=== PATIENT | male | born 1945 | race Caucasian/White ===

== ENCOUNTER 2016-12-18 11:39 | Day surgery (SDC) | payer OTHER ==
[2016-12-18] MEDS ORDERED: ASPIRIN EC 325 MG TAB PO ONE (11:43)
[2016-12-18] MEDS ORDERED: diphenhydrAMINE 25 MG CAP PO ONE (11:43)
[2016-12-18] MEDS ORDERED: FAMOTIDINE 20 MG TAB PO ONE (11:43)
[2016-12-18] MEDS ORDERED: NS 1,000 ML IV ONE (11:43)
[2016-12-18] MEDS ORDERED: DIAZEPAM 5 MG TAB PO ONE (11:43)
--- NOTE | 2016-12-18 12:12 | CPEKG ---
Heart Rate: 54 RR Interval: 1111 P-R Interval: 160 QRSD Interval: 108 QT Interval: 408 QTC Interval: 387 P [place]: 12 QRS [place]: 8 T Wave [place]: -8 EKG Severity - BORDERLINE ECG - EKG Impression: SINUS RHYTHM EKG Impression: BORDERLINE T ABNORMALITIES, ANTERIO-LATERAL LEADS Electronically Signed By: Benjamin Damon 18-Dec-2016 12:59:56
[2016-12-18] MEDS ORDERED: LIDOCAINE 1% 30 ML SDV ONE (12:25)
[2016-12-18] MEDS ORDERED: fentaNYL 100 MCG/2 ML INJ ONE (12:25)
[2016-12-18] MEDS ORDERED: HEPARIN 10,000 UNIT/10 ML MDV ONE (12:26)
[2016-12-18] MEDS ORDERED: VERAPAMIL 5 MG/2 ML VIAL ONE (12:26)
[2016-12-18] MEDS ORDERED: MIDAZOLAM 2 MG/2 ML VIAL ONE (12:26)
[2016-12-18] MEDS ORDERED: IOPAMIDOL (ISOVUE-300) 150 ML BTL IV ONE (12:29)
[2016-12-18 12:34] LABS: % IMMATURE GRANULYOCYTES 0.6 % (0.0-1.1); ABSOLUTE IMMATURE GRANULOCYTES 0.06 10^3/uL (0.00-0.10); ADD DIFF? NO; ADD MORPH? NO; ADD SCAN? NO; ATYPICAL LYMPHOCYTE FLAG 0 (0-99); FRAGMENT RBC FLAG 0 (0-99); HEMATOCRIT 44.8 % (40.0-51.0); HEMOGLOBIN 16.4 g/dL (13.7-17.5); LEFT SHIFT FLG 0 (0-99); LIPEMIA HEMOLYSIS FLAG 90 (0-99); MEAN CELL HEMOGLOBIN 32.7 pg (27.9-34.1); MEAN CELL HEMOGLOBIN CONCENTR. 36.6 g/dL (32.4-36.7); MEAN CELL VOLUME 89.2 fL (81.5-99.8); PLATELET CLUMPS FLAG 0 (0-99); PLATELET COUNT 190 10^3/uL (150-400); RED BLOOD CELL COUNT 5.02 10^6/uL (4.40-6.38); RED CELL DISTRIBUTION WIDTH 12.1 % (11.5-15.2)
[2016-12-18 12:42] LABS: INR 1.11 (0.83-1.16); PROTIME(PATIENT) 14.2 SEC (12.0-15.0)
[2016-12-18 13:01] LABS: ANION GAP 11 mEq/L (8-16); CALCIUM 9.4 mg/dL (8.5-10.4); CARBON DIOXIDE 24 mEq/l (22-31); CHLORIDE 107 mEq/L (97-110); CHOLESTEROL 147 mg/dL (140-220); CREATININE 0.8 mg/dL (0.7-1.3); GLOMERULAR FILTRATION RATE > 60; GLUCOSE 125 mg/dL (70-100); HIGH DENSITY LIPOPROTEIN 42 mg/dL (40-65); LDL/HDL RATIO 1.79 RATIO (1.00-3.64); LOW DENSITY LIPOPROTEIN 75 mg/dL (80-100); NON-HIGH DENSITY LIPOPROTEIN 105 mg/dL (90-129); POTASSIUM 3.8 mEq/L (3.5-5.2); SODIUM 142 mEq/L (134-144); TRIGLYCERIDE 153 mg/dL (40-150); VERY LOW DENSITY LIPOPROTEINS 30 mg/dL (8-25)
--- NOTE | 2016-12-18 13:43 | SUROPNOTE ---
[facility] Operative Report - Surgery Date of Procedure: 12/18/16 Indication: This patient is a 71 year old man, with a history of hypertension, hyperlipidemia, and type II diabetes, presenting with a 9 month history of intermittent episodes of chest pressure, first onset with exertion, but more recently with an episode while at rest. [address] cardiovascular class III angina. Nuclear stress test was abnormal. The patient demonstrated 2mm horizontal/downsloping ST depression at peak exercise. Furthermore, myocardial perfusion imaging showed a moderate size, moderate intensity reversible defect involving the full extent of the inferior wall consistent with ischemia, in additional to hypokinesis of the basal inferior wall and transient ischemic dilation of the left ventricle on stress. Left heart catheterization indicated secondary to class III angina and high-risk non-invasive testing. Procedures performed: 1. Left heart catheterization with left ventricular and selective coronary angiography. Description of procedure: Description, risks, benefits and alternatives were discussed in detail. Informed consent was obtained. The patient was brought to the catheterization laboratory where a timeout was performed. The right wrist was sterilely prepped and draped. 2% lidocaine utilized for local anesthetic. A 5/6-Romanian slender hemostatic sheath placed right radial artery utilizing micropuncture technique. Intraarterial verapamil and intravenous heparin was administered. Diagnostic coronary angiography of the left coronary system was performed with 6-Romanian, Flavio left-3.5. Due to tortuosity, the right coronary was very difficult to engage and catheter manipulation was challenging. A 6-Romanian Flavio right-4, [place] right, AL1, AR1, and ARMENDARIZ catheter was utilized for diagnostic coronary angiography of the right coronary, ultimately this was achieved utilizing a 6-Romanian ARMENDARIZ catheter. All catheters were passed over a 0.035 guidewire. Pigtail catheter was then utilized for left heart catheterization and left ventricular angiography. Arterial sheath was removed and TR band was placed. Findings: 1. Hemodynamics: Aortic pressure 110/62, mean of 84, left ventricular pressure 104/12/19 end-diastolic. There was no significant pull back gradient across the aortic valve. 2. Left ventricle: The left ventricle appears normal in size. Left ventricle is normal shape. Segmental wall motion is normal with an ejection fraction of 60 %. There are no filling defects or significant mitral regurgitation. The aortic root and ascending aorta appears normal, there is no dissection or aneurysm formation. 3. Coronary angiography: Left main: The left main is a very short bifurcating vessel, which is calcified but has no significant stenosis. 4. Left anterior descending: This is a moderately large, heavily calcified vessel continuing around the apex. There is a moderate size first diagonal branch, a small second diagonal branch, and a small-moderate third diagonal branch. All three diagonals have ostial subtotal occlusions. The lad is heavily calcified with proximal 70% stenosis and a long mid 90% stenosis. 5. Circumflex: The circumflex gives rise to a moderately large first obtuse marginal branch, which has a fairly long subtotal proximal stenosis, and a moderately large bifurcating second obtuse marginal branch, which has a proximal subtotal occlusion involving both branches of the bifurcation. Then there are two posterolaterals and a posterior descending artery, which are small -to-moderate in size with irregularities but no stenosis of greater than 40%. 6. Right coronary: Difficult to engage. Moderately large non-dominate vessel with a 75% proximal stenosis. Overall Impression: 1. Severe three-vessel coronary artery disease 2. Normal left ventricular systolic function, with ejection fraction of 60%. Plan: 1. Echocardiogram 2. Carotid ultrasound 3. Plan for bypass surgery with Dr. Hyde, likely early next week. Portions of this report were documented by a medical device. I have reviewed this report and agree with the documentation. Report scribed for Dr. Navi Mcclain. Report scribed by Dianelys Landin.
[2016-12-18] MEDS ORDERED: OXYCODONE/APAP 5/325 TAB PO PRN (13:55)
[2016-12-18] MEDS ORDERED: NITROGLYCERIN 0.4 MG BTL SL PRN (13:55)
[2016-12-18] MEDS ORDERED: ONDANSETRON 4 MG/2 ML VIAL IVP PRN (13:55)
[2016-12-18] MEDS ORDERED: ATROPINE SULFATE 1 MG/10 ML SYR IVP PRN (13:55)
[2016-12-18] MEDS ORDERED: HYDROCODONE/APAP 5/325 TAB PO PRN (13:55)
--- NOTE | 2016-12-19 10:11 | GCON ---
DATE OF CONSULTATION: 12/18/2016 IMPRESSION: 1. Unstable angina pectoris with severe 3-vessel disease. 2. Diabetes mellitus type 2, currently not taking prescribed metformin. 3. Hyperlipidemia, on Lipitor. 4. Hypertension. 5. History of moderate to heavy longstanding alcohol intake without sequela. RECOMMENDATIONS: I did student loan counselor this patient about moderate alcohol intake and decreasing the level. I advised him that in the next 48 hours he should not drink at all prior to surgery, and we will co jose manuel him with sedatives in the perioperative period and likely oral alcohol to prevent any consequenc es. We did discuss coronary artery bypass grafting. He is amenable to proceed with elective surgery on Friday given the unstable nature of his lesions and symptoms. He does understand if he has any re current chest pain after being discharged, he should immediately return to the emergency room, at wh ich point we will control his angina and proceed with earlier surgery. Risks and complications for s urgery were reviewed. We will also obtain a carotid ultrasound, chest x-ray, and cardiac echo, altho ugh he has no history of valvular disease or significant murmurs. 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 It has not awakened him at [facility]. He had no prior known cardiac event. He had noninvasive testing which was abnormal, which led t o diagnostic left heart cath today which showed 3-vessel equivalent disease with well-preserved LV f unction. MEDICAL HISTORY: As stated. PAST SURGICAL HISTORY: He has had both knees operated with total knee replacement. FAMILY HISTORY: Noncontributory. REVIEW OF SYSTEMS: At the present time, he is without complaints, except for chief complaint. PHYSICAL EXAMINATION: GENERAL: He is a well-developed elderly gentleman, appears younger than state d age. VITAL SIGNS: Blood pressure is 140/76, respirations 14 nonlabored, heart rate is 76. HEENT: N ormocephalic. PERRLA, EOMI. There are bilateral soft carotid bruits. HEART: Rate is regular without murmur. LUNGS: Clear. ABDOMEN: Soft, nontender. Bowel sounds are active. RECTAL AND GENITAL: Deferre d. NEUROLOGIC: He is oriented x3. Mood and affect were appropriate. Please see cath report for details. /[id number]/MODL
--- NOTE | 2016-12-20 08:48 | ECHO ---
[id number] + + [address] : : [place] [address] : : [phone] + + Adult Echocardiographic Report + + :Name: KULDIP WIGGINS DStudy Date: 12/18/2016 05:35 PM BP: 133/83 mmHg : : Hospital Admission Number: [id number] Loc ation: CVC: :: 1945 Gender: Male Height: 66 in : :Age: 71 yrs Race: WH Weight: 191 lb : :Reason For Study: evaluate valves : : BSA: 2.0 me ters2 : :History: pre-op CABG : + + MMode/2D Measurements \T\ Calculations IVSd: 0.86 cm RVDd: 2.3 cm FS: 33.7 % Ao root diam: LVPWd: 0.84 cm LVIDd: 4.1 cm EDV(Teich): 75.2 ml3.0 cm LVIDs: 2.7 cm ESV(Teich): 27.8 ml EF(Teich): 63.0 % LVOT diam: 2.0 cmLVLd ap4: 8.4 cm SV(MOD-sp4): LVOT area: EDV(MOD-sp4): 70.0 ml 3.0 cm2 116.0 ml LVLs ap4: 7.3 cm ESV(MOD-sp4): 46.0 ml EF(MOD-sp4): 60.3 % Normal Measurement Values: + + :LVIDd (3.5-5.7cm) IVSd (0.6-1.1cm) LVPWd (0.6-1.1cm) Aortic Root (2.0-3.7cm)Left Atrium (1.5-4.0cm): :LV Vol(d) (76-115ml) LV Vol(s) (29-48ml) Ejec Fraction (50-65%)PV Marc (0.6- 1.2m/s) TV Marc (0.4-1.0m/s) : :MV E Marc (0.8-1.0m/s)MV A Marc (0.3-1.0m/s)LVOT Marc (0.7-1.2m/s) Asc Ao Marc ( 0.9-1.8m/s) : + + Doppler Measurements \T\ Calculations MV E max marc: Ao V2 max: LV V1 max: SV(LVOT): 81.4 cm/sec 199.1 cm/sec 96.3 cm/sec 79.2 ml MV A max marc: Ao max P.9 mmHgLV V1 max P.8 cm/sec Ao mean P.7 mmHg3.7 mmHg MV E/A: 0.87 Ao V2 mean: LV V1 mean PG: MV dec time: 0.22 sec 141.8 cm/sec 2.5 mmHg Ao V2 VTI: 37.9 cm LV V1 mean: SP(I,D): 2.1 cm2 73.5 cm/sec LV V1 VTI: 26.1 cm SP(V,D): 1.5 cm2 PA V2 max: TR max marc: 109.8 cm/sec 230.8 cm/sec PA max P.8 mmHg TR max P.3 mmHg RAP systole: 5.0 mmHg RVSP(TR): 26.3 mmHg Left Ventricle The left ventricle is normal in size and function. There is mild concentric left ventricular hypertrophy. Ejection Fraction = 60-65%. There is Doppler evidence for diastolic dysfunction. No regional wall motion abnormalities noted. Right Ventricle The right ventricle is normal in size and function. Atria The left atrial size is normal. Right atrial size is normal. Mitral Valve The mitral valve leaflets appear thickened, but open well. There is no mitral valve stenosis. There is trace mitral regurgitation. Tricuspid Valve The tricuspid valve is normal in structure and function. There is no tricuspid stenosis. There is trace to mild tricuspid regurgitation. Right ventricular systolic pressure is 26mmHg. Aortic Valve The aortic valve is trileaflet. There is mild to moderate aortic valve calcification. There is no aortic stenosis. Trace aortic regurgitation. Pulmonic Valve The pulmonic valve is not well visualized. Great Vessels The aortic root is normal size. Pericardium/Pleural There is no pericardial effusion. Conclusion A two-dimensional transthoracic echocardiogram with M-mode and Doppler was performed. The left ventricle is normal in size and function. There is mild concentric left ventricular hypertrophy. Ejection Fraction = 60-65%. There is trace mitral regurgitation. There is trace to mild tricuspid regurgitation. Right ventricular systolic pressure is 26mmHg. Trace aortic regurgitation. There is Doppler evidence for diastolic dysfunction. Final Reading Physician: Pooja Benson signed on 12/20/2016 08:47 AM Ordering Physician: Luciano Hyde Performed By: Krista Mitchell
== END 2016-12-18 18:35 | disposition home or self-care (01) ==
LOC: FCATH 11:39
PROVIDERS: ATTEND Internal Medicine Interventional Cardiology
DX: I25.119 Atherosclerotic heart disease of native coronary artery with unspecified angina pectoris (principal); E78.5 Hyperlipidemia, unspecified; E11.9 Type 2 diabetes mellitus without complications; I10 Essential (primary) hypertension; Z96.652 Presence of left artificial knee joint
CPT/HCPCS: J1644; J2250; J3010; Q9967

== ENCOUNTER 2016-12-19 12:45 | Inpatient (IN) | payer OTHER ==
[2016-12-20] MEDS ORDERED: LIDOCAINE 1% 5 ML SDV ID PRN ×2 (06:00→07:11)
[2016-12-20] MEDS ORDERED: AMINOCAPROIC ACID 5 GM/20 ML VIAL IV ONE (06:00)
[2016-12-20] MEDS ORDERED: INSULIN REGULAR HUMAN 100 UNIT in NS 100 ML IV ONE (06:00)
[2016-12-20] MEDS ORDERED: NOREPINEPHRINE BITARTRATE 16 MG in NS 250 ML IV ONE (06:00)
[2016-12-20] MEDS ORDERED: niCARdipine/NACL 200 ML IV ONE (06:00)
[2016-12-20] MEDS ORDERED: CITRATE DEXTROSE SOLN 500 ML BAG MISC ONE (06:00)
[2016-12-20] MEDS ORDERED: NS 1,000 ML IV ONE (06:00)
[2016-12-20] MEDS ORDERED: SODIUM BICARBONATE 20 MEQ, LIDOCAINE 1% 10 ML in NORMOSOL-R 1,000 ML MISC ONE (06:00)
[2016-12-20] MEDS ORDERED: VERAPAMIL 5 MG, NITROGLYCERIN 2.5 MG, HEPARIN 500 UNIT, SODIUM BICARBONATE 0.2 MEQ in L... MISC ONE (06:00)
[2016-12-20] MEDS ORDERED: PHENYLEPHRINE HCL 50 MG in NS 250 ML IV ONE (06:00)
[2016-12-20] MEDS ORDERED: ceFAZolin 2 GM/DEXTROSE 100 ML IV ONE (06:00)
[2016-12-20] MEDS ORDERED: MANNITOL 25% 12.5 GM/50 ML VIAL IV ONE (06:00)
[2016-12-20] MEDS ORDERED: PROTAMINE SULFATE 50 MG/5 ML VIAL IVP ONE (06:41)
[2016-12-20] MEDS ORDERED: POTASSIUM Cl (KCl) 20 MEQ/50 ML BAG IV ONE (06:42)
[2016-12-20] MEDS ORDERED: AMINOCAPROIC ACID 5 GM/20 ML VIAL ONE ×2 (06:42→06:45)
[2016-12-20] MEDS ORDERED: CALCIUM CHLORIDE 1 GM/10 ML INJ ONE ×2 (06:42→06:45)
[2016-12-20] MEDS ORDERED: MILRINONE/DEXTROSE/100 ML BAG IV ONE (06:42)
[2016-12-20] MEDS ORDERED: NA BICARBONATE 50 MEQ/50 ML VIAL ONE (06:42)
[2016-12-20] MEDS ORDERED: AMIODARONE HCL 150 MG/3 ML VIAL ONE ×2 (06:43→06:45)
[2016-12-20] MEDS ORDERED: niCARdipine/NACL/200 ML BAG IV ONE (06:43)
[2016-12-20] MEDS ORDERED: DOPamine/DEXTROSE/250 ML BAG IV ONE (06:43)
[2016-12-20] MEDS ORDERED: ADENOSINE 6 MG/2 ML VIAL ONE (06:43)
[2016-12-20] MEDS ORDERED: HEPARIN 10,000 UNIT/10 ML MDV ONE ×2 (06:44→06:46)
[2016-12-20] MEDS ORDERED: ceFAZolin 1 GM VIAL ONE (06:44)
[2016-12-20] MEDS ORDERED: ALBUMIN 5% 250 ML BOTTLE IV ONE (06:45)
[2016-12-20] MEDS ORDERED: LIDOCAINE 2% 100 MG/5 ML SYR IVP ONE (06:45)
[2016-12-20] MEDS ORDERED: MAGNESIUM SULFATE 1 GM/2 ML VIAL ONE (06:46)
[2016-12-20] MEDS ORDERED: methylPREDNISolone SOD SUCC 1 GM/8 ML VIAL ONE (06:46)
[2016-12-20] MEDS ORDERED: SKIN ADHESIVE (DERMABOND) 1 EACH TP ONE (06:56)
[2016-12-20] MEDS ORDERED: MINERAL OIL 10 ML VIAL TP ONE (06:57)
[2016-12-20] MEDS ORDERED: PAPAVERINE HCL 60 MG/2 ML SDV ONE (06:57)
[2016-12-20] MEDS ORDERED: VERAPAMIL 5 MG/2 ML VIAL ONE (06:57)
[2016-12-20] MEDS ORDERED: LIDOCAINE 1% 5 ML SDV ONE (06:58)
[2016-12-20] MEDS ORDERED: CITRATE DEXTROSE SOLN 500 ML BAG ONE (06:59)
[2016-12-20] MEDS ORDERED: MIDAZOLAM 2 MG/2 ML VIAL ONE ×2 (07:10)
[2016-12-20] MEDS ORDERED: LR 1,000 ML IV ONE (07:11)
[2016-12-20] MEDS ORDERED: PROPOFOL 200 MG/20 ML VIAL ONE (07:12)
[2016-12-20] MEDS ORDERED: fentaNYL 250 MCG/5 ML INJ ONE ×2 (07:12)
[2016-12-20] MEDS ORDERED: PHENYLEPHRINE 10 MG/ML SDV ONE ×2 (07:14)
[2016-12-20] MEDS ORDERED: LIDOCAINE 2% 5 ML SDV ONE (07:17)
[2016-12-20] MEDS ORDERED: LABETALOL HCL 5 MG/ML 20 ML MDV ONE (07:21)
[2016-12-20] MEDS ORDERED: ROCURONIUM 100 MG/10 ML VIAL ONE (07:21)
[2016-12-20] MEDS ORDERED: epHEDrine SULFATE 10 MG/ML SYR ONE (08:02)
[2016-12-20] MEDS ORDERED: ROCURONIUM 50 MG/5 ML VIAL ONE (10:50)
[2016-12-20] MEDS ORDERED: MAGNESIUM SULF 1 GM/DEXTROSE 100 ML BAG IV ONE (11:20)
[2016-12-20] MEDS ORDERED: SUGAMMADEX SODIUM 200 MG/2 ML VIAL IVP ONE (11:26)
[2016-12-20] MEDS ORDERED: ALBUMIN 5% 250 ML IV PRN (11:54)
[2016-12-20] MEDS ORDERED: SODIUM CL NASAL 45 ML BTL EACHNARE PRN (11:54)
[2016-12-20] MEDS ORDERED: MAGNESIUM SULF 2 GM/WATER 50 ML IV ONE (11:54)
[2016-12-20] MEDS ORDERED: CEPACOL LOZENGE PO PRN (11:54)
[2016-12-20] MEDS ORDERED: LACTULOSE 20 GM/30 ML UDCUP PO PRN (11:54)
[2016-12-20] MEDS ORDERED: MAGNESIUM HYDROXIDE 30 ML UDCUP PO PRN (11:54)
[2016-12-20] MEDS ORDERED: ACETAMINOPHEN 325 MG TAB PO PRN (11:54)
[2016-12-20] MEDS ORDERED: POLYETHYLENE GLYCOL 3350 17 GM PKT PO PRN (11:54)
[2016-12-20] MEDS ORDERED: ONDANSETRON DISINTEGRATING 4 MG TAB PO PRN (11:54)
[2016-12-20] MEDS ORDERED: D50W 25 GM/50 ML SYR IVP PRN (11:54)
[2016-12-20] MEDS ORDERED: PANTOPRAZOLE SODIUM 40 MG in NS 100 ML IV ONE (11:54)
[2016-12-20] MEDS ORDERED: fentaNYL 100 MCG/2 ML INJ IVP PRN (11:54)
[2016-12-20] MEDS ORDERED: BISACODYL 10 MG SUPP PR PRN (11:54)
[2016-12-20] MEDS ORDERED: MEPERIDINE 25 MG/ML SYR IVP PRN (11:54)
[2016-12-20] MEDS ORDERED: ACETAMINOPHEN 650 MG SUPP PR PRN (11:54)
[2016-12-20] MEDS ORDERED: NS 1,000 ML IV SCH (12:00)
[2016-12-20] MEDS ORDERED: INSULIN REGULAR HUMAN 100 UNIT in NS 100 ML IV SCH (12:00)
--- NOTE | 2016-12-20 12:13 | POSTOPPROG ---
Post Op Note Date of Operation: 12/20/16 Surgeon: Luciano Hyde Video Effects Editor: Jassi Anesthesiologist: Luis Anesthesia: GET(General Endotracheal) Pre-op Diagnosis: ASHD Procedure: CAB 5 Ley-Lad, SVG-Dg,Lcx,PLCXseqPDCX, Atriclip FARIBA,EVH Inf/Abcess present in the surg proc area at time of surgery?: No EBL: 50-100 Drains: Other (3 blakes)
[2016-12-20 12:47] LABS: BASE EXCESS -4.7 mEq/L (-2.5-2.5); BICARBONATE 21 mEq/L (22-26); MEASURED OXYGEN SATURATION 92 % (92-95); PCO2 41 mmHg (34-38); PO2 66 mmHg (65-75); TCO2 22 mEq/L (23-27)
--- NOTE | 2016-12-20 12:49 | GOP ---
DATE OF OPERATION: 12/20/2016 SURGEON: Luciano Hyde DO HOME TEACHING GRADES 9 THRU 12 TEACHER: Gely Keene, PAC ANESTHESIA: Pavan Smith MD. PREOPERATIVE DIAGNOSIS: Arteriosclerotic heart disease with unstable angina. POSTOPERATIVE DIAGNOSIS: Arteriosclerotic heart disease with unstable angina. PROCEDURE PERFORMED: FINDINGS: The patient had crescendo angina, with angina at rest. Was found to have three-vessel di sease with mild LV dysfunction. Preoperative echocardiogram revealed mild to trace mitral insuffici ency. Otherwise, no valvular dysfunction. He was consented for surgery. Brought to the operating room, intubated. Monitoring lines were placed. He was prepped and draped in a sterile classical ma nner. Sternotomy was performed. The mammary was harvested without difficulty. It was a 2 mm vesse l with brisk flow. There vein was harvested endoscopically from the left leg, by Gely Keene, who then first assisted throughout. DESCRIPTION OF PROCEDURE: OPERATION PERFORMED: 1. Coronary bypass grafting x5 with left internal mammary artery to left anterior descending, saphe nous vein graft to the second diagonal, saphenous vein graft to the lateral circumflex, saphenous ve in graft to the posterolateral branch of the circumflex, sequential posterior tibial circumflex. 2. Endoscopic vein harvest. 3. AtriClip to the left atrial appendage. PROCEDURE: He was heparinized and cannulated in the standard fashion. Cardiopulmonary bypass was b egun. A cardioplegic arrest was obtained with antegrade cardioplegia, topical hypothermia and syste jose maria cooling. All distals and proximals were performed with a cross-clamp on. He had diffuse wolfe ry disease throughout. His PT circumflex was a 1.2 mm vessel. The posterior lateral circumflex was a 1.8 mm vessel. The lateral circumflex was a 1.82 mm vessel. The diagonal was 1.8 mm vessel. Th e LAD was a diffusely diseased, heavily calcified, 2.2 to 2.4 mm vessel. The conduits were excellen t. The aorta was without thickening or calcification. LV function was well preserved. Preoperativ e TITO revealed, again, mild mitral insufficiency. Post operatively, he had more significant mitral insufficiency, although he is only V paced. This was not considered significant and should resolve with resumption of normal heart rhythm. He was easily weaned from bypass. The heparin was reversed with protamine. The cannula was removed and oversewn. Two ventricular pacing wires, two pleural a nd one mediastinal drain were placed. The thymic fat and pericardium were closed. The chest was cl osed in a standard fashion. Patient was returned to the ICU in stable condition. /[id number]/MODL
[2016-12-20] MEDS ORDERED: fentaNYL 50 MCG PATCH TD SCH (13:00)
--- NOTE | 2016-12-20 13:02 | CPEKG ---
Heart Rate: 50 RR Interval: 1200 P-R Interval: 184 QRSD Interval: 140 QT Interval: 436 QTC Interval: 398 P [place]: 51 QRS [place]: -33 T Wave [place]: 36 EKG Severity - ABNORMAL ECG - EKG Impression: SINUS RHYTHM EKG Impression: RIGHT BUNDLE BRANCH BLOCK Electronically Signed By: Benjamin Damon 20-Dec-2016 13:09:04
[2016-12-20] MEDS: MUPIROCIN 2% 22 GM OINT NS SCH ×2 (13:40→22:12)
[2016-12-20] MEDS: ceFAZolin 2 GM in D5W 100 ML IV SCH ×2 (13:41→22:10)
[2016-12-20] MEDS ORDERED: ceFAZolin 2 GM/DEXTROSE 100 ML IV SCH (14:00)
[2016-12-20] MEDS: POTASSIUM Cl (KCl) 50 ML IV PRN ×2 (15:07→16:09)
[2016-12-20] MEDS ORDERED: NOREPINEPHRINE BITARTRATE 16 MG in NS 250 ML IV SCH (15:30)
[2016-12-20] MEDS ORDERED: ALBUTEROL 3 ML DEYVIAL IH PRN (15:30)
[2016-12-20] MEDS ORDERED: ALBUMIN 5% 500 ML IV ONE ×2 (16:00→19:00)
[2016-12-20] MEDS: HYDROCODONE/APAP 5/325 TAB PO PRN ×2 (16:47→22:30)
[2016-12-20] MEDS: METOCLOPRAMIDE 10 MG/2 ML VIAL IVP PRN (18:58)
[2016-12-20] MEDS: ONDANSETRON 4 MG/2 ML VIAL IVP PRN (18:58)
[2016-12-20 19:40] LABS: BASE EXCESS -2.9 mEq/L (-2.5-2.5); BICARBONATE 22 mEq/L (22-26); MEASURED OXYGEN SATURATION 89 % (92-95); PCO2 39 mmHg (34-38); PO2 58 mmHg (65-75); TCO2 23 mEq/L (23-27)
[2016-12-20] MEDS: SENNOSIDES/DOCUSATE SODIUM TAB PO SCH (22:12)
[2016-12-20] MEDS: MONTELUKAST SODIUM 10 MG TAB PO SCH (22:13)
[2016-12-21] MEDS: HYDROCODONE/APAP 5/325 TAB PO PRN ×4 (02:57→20:42)
[2016-12-21 04:27] LABS: % IMMATURE GRANULYOCYTES 0.6 % (0.0-1.1); ADD DIFF? NO; ADD MORPH? NO; ADD SCAN? NO; ATYPICAL LYMPHOCYTE FLAG 0 (0-99); FRAGMENT RBC FLAG 0 (0-99); HEMATOCRIT 27.3 % (40.0-51.0); HEMOGLOBIN 9.7 g/dL (13.7-17.5); LEFT SHIFT FLG 20 (0-99); LIPEMIA HEMOLYSIS FLAG 90 (0-99); MEAN CELL HEMOGLOBIN 33.3 pg (27.9-34.1); MEAN CELL HEMOGLOBIN CONCENTR. 35.5 g/dL (32.4-36.7); MEAN CELL VOLUME 93.8 fL (81.5-99.8); MEAN PLATELET VOLUME 11.8 fL (8.7-11.7); PLATELET CLUMPS FLAG 0 (0-99); PLATELET COUNT 121 10^3/uL (150-400); RED BLOOD CELL COUNT 2.91 10^6/uL (4.40-6.38); RED CELL DISTRIBUTION WIDTH 12.7 % (11.5-15.2)
[2016-12-21 04:34] LABS: ANION GAP 10 mEq/L (8-16); CALCIUM 7.5 mg/dL (8.5-10.4); CARBON DIOXIDE 22 mEq/l (22-31); CHLORIDE 111 mEq/L (97-110); CREATININE 0.8 mg/dL (0.7-1.3); GLOMERULAR FILTRATION RATE > 60; GLUCOSE 86 mg/dL (70-100); POTASSIUM 4.1 mEq/L (3.5-5.2); SODIUM 143 mEq/L (134-144)
[2016-12-21] MEDS: ceFAZolin 2 GM in D5W 100 ML IV SCH ×3 (05:09→22:06)
[2016-12-21] MEDS: ONDANSETRON 4 MG/2 ML VIAL IVP PRN ×2 (06:44→20:50)
[2016-12-21] MEDS: METOCLOPRAMIDE 10 MG/2 ML VIAL IVP PRN ×2 (06:44→22:06)
[2016-12-21] MEDS: HEPARIN 5,000 UNIT/0.5 ML SYR SC SCH ×3 (06:45→22:06)
--- NOTE | 2016-12-21 08:10 | SOAPPROG ---
SOAP Progress Note Assessment/Plan: Assessment: POD#1 CABG x 5 (SNOW-LAD, SV-D2, SV-OM1, SV sequentially to bifurcating OM2), prophylactic AtriClip LLAA Sx severe CAD w preserved LV systolic fx - s/p CABG5. Extubated in the OR. Stable early postop course. No prolonged vasoactive support. No tachycardia or backup pacing. No sig volume overload. Secondary prevention w ASA, BB as tolerated and statin when eating well. DM2 - Diet controlled, noncompliant with metformin. Preop A1c of 7.5%. Postop hyperglycemia managed with insulin gtt. Transition to SSI and OHA planned. ELIUD on CPAP - Stable. Plan: Routine POD#1 orders re lines, drains, orals and mobility. Glargine 10mg SC to facilitate wean from insulin gtt. Tx to PCU this afternoon. 12/21/16 08:09 Subjective: Feels a bit "goofy" but tolerating OOB. Satisfactory analgesia and appetite. No wheezing. Objective: Vital Signs Temp Pulse Resp BP Pulse Ox 37 C 73 20 103/46 L 91 L 12/21/16 08:00 12/21/16 08:00 12/21/16 08:00 12/21/16 08:00 12/21/16 08:00 Laboratory Results 12/21/16 04:10 12/21/16 04:10 12/20/16 12/21/16 12/22/16 05:59 05:59 05:59 Intake Total 2576.9 Output Total 1855 380 Balance 721.9 -380 Weaned off low dose levo without incident. Holding MAPs > 64. Stable suppl O2 req. CXR-> tubes in good position, mild pulm vasc congestion, bibasilar atelectasis L >R, no PTX. No sig CTOP. No AL. Labs ok. Physical Exam - Physical Exam General Appearance: alert, no apparent distress Respiratory: lungs clear (grossly), other (Blakes x 3 y-d to pleurovac, bloody drainage. +tidal, no AL.) Cardiac/Chest: regular rate, rhythm, other (Sternotomy CDI. Vwires intact) Abdomen: normal bowel sounds, non-tender, soft Skin: warm/dry Extremities: swelling (1+), other (LLE venotomy CDI, venot tract soft, flat) ICD10 Worksheet Patient Problems: Problems Problem Status Onset Acute blood loss anemia Acute S/P CABG x 5 Acute ~12/20/16 CAD in [place] artery Chronic Diabetes mellitus Chronic Primary osteoarthritis of left knee Chronic
[2016-12-21] MEDS ORDERED: ASPIRIN 81 MG CHEWABLE TAB PO SCH (09:00)
[2016-12-21] MEDS ORDERED: ASPIRIN 81 MG CHEWABLE TAB TUBE PRN (09:00)
[2016-12-21] MEDS: SENNOSIDES/DOCUSATE SODIUM TAB PO SCH ×2 (09:07→20:42)
[2016-12-21] MEDS: MUPIROCIN 2% 22 GM OINT NS SCH (09:08)
[2016-12-21] MEDS: FLUTICASONE/SALMETER 250/50MCG DISKUS IH SCH (09:08)
[2016-12-21] MEDS ORDERED: INSULIN GLARGINE 100 UNITS/ML SYRINGE SC ONE (10:30)
[2016-12-21] MEDS: PANTOPRAZOLE SODIUM 40 MG TAB PO SCH (11:59)
[2016-12-21] MEDS ORDERED: traMADol 50 MG TAB PO PRN (12:58)
[2016-12-21 18:36] LABS: GLUCOSE 212 mg/dL (70-100)
[2016-12-21] MEDS: INSULIN LISPRO 100 UNIT/ML SC SCH (19:06)
[2016-12-21] MEDS: METOPROLOL TARTRATE 25 MG TAB PO SCH ×2 (20:41→23:59)
[2016-12-21] MEDS: MONTELUKAST SODIUM 10 MG TAB PO SCH ×2 (20:41→23:59)
[2016-12-21] MEDS: ASPIRIN EC 81 MG TAB PO SCH ×2 (20:41→23:59)
[2016-12-21] MEDS ORDERED: AMIODARONE A.FIB-18HR INFSN (ORDER 3/3) IV ONE (23:30)
[2016-12-21] MEDS ORDERED: AMIODARONE A.FIB-6HR INFSN (ORDER 2/3) IV ONE (23:30)
[2016-12-21] MEDS ORDERED: POTASSIUM Cl (KCl) 100 ML IV ONE (23:30)
[2016-12-21] MEDS: FUROSEMIDE 20 MG/2 ML VIAL IVP ONE (23:59)
[2016-12-22] MEDS: SENNOSIDES/DOCUSATE SODIUM TAB PO SCH ×3 (00:01→20:35)
[2016-12-22] MEDS: FUROSEMIDE 20 MG/2 ML VIAL IVP ONE (00:54)
[2016-12-22] MEDS ORDERED: AMIODARONE A.FIB-18HR INFSN (ORDER 3/3) IV ONE (06:00)
[2016-12-22] MEDS: HEPARIN 5,000 UNIT/0.5 ML SYR SC SCH ×3 (06:31→20:32)
[2016-12-22 06:53] LABS: % IMMATURE GRANULYOCYTES 0.7 % (0.0-1.1); ABSOLUTE IMMATURE GRANULOCYTES 0.11 10^3/uL (0.00-0.10); ADD DIFF? NO; ADD MORPH? NO; ADD SCAN? NO; ATYPICAL LYMPHOCYTE FLAG 10 (0-99); FRAGMENT RBC FLAG 0 (0-99); HEMATOCRIT 27.5 % (40.0-51.0); HEMOGLOBIN 9.6 g/dL (13.7-17.5); LEFT SHIFT FLG 0 (0-99); LIPEMIA HEMOLYSIS FLAG 90 (0-99); MEAN CELL HEMOGLOBIN 33.6 pg (27.9-34.1); MEAN CELL HEMOGLOBIN CONCENTR. 34.9 g/dL (32.4-36.7); MEAN CELL VOLUME 96.2 fL (81.5-99.8); MEAN PLATELET VOLUME 11.9 fL (8.7-11.7); PLATELET CLUMPS FLAG 0 (0-99); PLATELET COUNT 120 10^3/uL (150-400); RED BLOOD CELL COUNT 2.86 10^6/uL (4.40-6.38)
[2016-12-22 06:59] LABS: ANION GAP 6 mEq/L (8-16); CALCIUM 7.9 mg/dL (8.5-10.4); CARBON DIOXIDE 24 mEq/l (22-31); CHLORIDE 109 mEq/L (97-110); CREATININE 0.9 mg/dL (0.7-1.3); GLOMERULAR FILTRATION RATE > 60; GLUCOSE 158 mg/dL (70-100); POTASSIUM 4.4 mEq/L (3.5-5.2); SODIUM 139 mEq/L (134-144)
[2016-12-22] MEDS: ASCORBIC ACID 500 MG TAB PO SCH (07:42)
[2016-12-22] MEDS: ASPIRIN EC 81 MG TAB PO SCH ×2 (07:42→20:33)
[2016-12-22] MEDS: CHOLECALCIFEROL VIT D3 1,000 UNITS TAB PO SCH (07:42)
[2016-12-22] MEDS: PANTOPRAZOLE SODIUM 40 MG TAB PO SCH (07:43)
[2016-12-22] MEDS: METOPROLOL TARTRATE 25 MG TAB PO SCH (08:11)
[2016-12-22] MEDS: INSULIN LISPRO 100 UNIT/ML SC SCH ×3 (09:00→20:27)
--- NOTE | 2016-12-22 09:56 | SOAPPROG ---
SOAP Progress Note Assessment/Plan: Assessment: POD#2 CABG x 5 (SNOW-LAD, SV-D2, SV-OM1, SV sequentially to bifurcating OM2), prophylactic AtriClip LLAA Sx severe CAD w preserved LV systolic fx - s/p CABG5. Extubated in the OR. Stable early postop course. No prolonged vasoactive support. No tachycardia or backup pacing. No sig volume overload. Secondary prevention w ASA, BB as tolerated and statin when eating well. Postop PAF - AF w CVR last noc, responsive to amio gtt, no bolus. Some silvia- conversion mathew. No sustained pauses. Cont close monitoring. Postop ileus - Distended abd w hypoactive BS and dysphagia. Exacerbated by narc , CPAP. Supportive care for now. DM2 - Diet controlled, noncompliant with metformin. Preop A1c of 7.5%. Postop hyperglycemia managed with insulin gtt. Transition to SSI and OHA planned. ELIUD on CPAP - Stable. Home unit in room. Able to use last night. RAD - Extubated with moderate suppl O2 req. Mucolytics and nebs prn. Transition to home MDIs when able to use appropriately. Plan: NPO. NS @ 75 ml/h x 1L. NGT decompression x 4 hr. Maintain if high output or ongoing distention Remove duragesic patch. Toradol 15mg IV q6h x 24h. IV Reglan and dulcolax DC x 1. Amio per protocol once taking po. Blakes to bulb suction. Keep Vwire for now. Inc activity. 12/22/16 08:53 Subjective: Ok now. Somewhat crummy night: Intermittent nausea and unable to swallow pills or eat dinner. Belly bloated. Not passing gas. Aware of abnormal rhythm. Objective: Vital Signs Temp Pulse Resp BP Pulse Ox 37.1 C 96 20 103/63 90 L 12/22/16 08:30 12/22/16 08:30 12/22/16 08:30 12/22/16 08:30 12/22/16 08:30 Laboratory Results 12/22/16 06:20 12/22/16 06:20 12/21/16 12/22/16 12/23/16 05:59 05:59 05:59 Intake Total 2576.9 1720 Output Total 1855 1920 210 Balance 721.9 -200 -210 Transient AF w rates 90s-100s late last noc. Episodic silvia-conversion mathew w junct escape. Holding SR since ~230am. Improved UOP and decr suppl O2 with diuretic. Pleurovac no apparent air leak. Labs ok. Physical Exam - Physical Exam General Appearance: alert, no apparent distress Respiratory: other (Blakes x 3 y-d to pleurovac, serosang drainage. No air leak w vigorous cough) Cardiac/Chest: regular rate, rhythm, other (Sternum grossly stable. Sternotomy CDI. Vwire intact.) Abdomen: distended (tympanitic to percussion), other (hypoactive BS) Skin: warm/dry Extremities: swelling (trace), other (LLE venot CDI) ICD10 Worksheet Patient Problems: Problems Problem Status Onset Acute blood loss anemia Acute Postoperative atrial fibrillation Acute Postoperative ileus Acute S/P CABG x 5 Acute ~12/20/16 CAD in [place] artery Chronic Diabetes mellitus Chronic Primary osteoarthritis of left knee Chronic
[2016-12-22] MEDS ORDERED: NS 1,000 ML IV SCH (10:00)
[2016-12-22] MEDS: FLUTICASONE/SALMETER 250/50MCG DISKUS IH SCH (10:21)
[2016-12-22] MEDS: KETOROLAC 15 MG/1 ML SDV IVP PRN ×3 (10:39→22:51)
[2016-12-22] MEDS: METOCLOPRAMIDE 10 MG/2 ML VIAL IVP PRN ×2 (10:45→17:10)
[2016-12-22] MEDS ORDERED: METOPROLOL TARTRATE 25 MG TAB TUBE SCH (21:00)
[2016-12-22] MEDS ORDERED: PANTOPRAZOLE SODIUM 40 MG in NS 100 ML IV SCH (21:00)
[2016-12-22] MEDS: MONTELUKAST SODIUM 10 MG TAB TUBE SCH (22:18)
[2016-12-23] MEDS: HEPARIN 5,000 UNIT/0.5 ML SYR SC SCH (05:25)
[2016-12-23 06:09] LABS: % IMMATURE GRANULYOCYTES 0.6 % (0.0-1.1); ABSOLUTE IMMATURE GRANULOCYTES 0.09 10^3/uL (0.00-0.10); ADD DIFF? NO; ADD MORPH? NO; ADD SCAN? NO; ATYPICAL LYMPHOCYTE FLAG 10 (0-99); FRAGMENT RBC FLAG 0 (0-99); HEMATOCRIT 30.5 % (40.0-51.0); HEMOGLOBIN 10.1 g/dL (13.7-17.5); LEFT SHIFT FLG 0 (0-99); LIPEMIA HEMOLYSIS FLAG 80 (0-99); MEAN CELL HEMOGLOBIN 32.3 pg (27.9-34.1); MEAN CELL HEMOGLOBIN CONCENTR. 33.1 g/dL (32.4-36.7); MEAN CELL VOLUME 97.4 fL (81.5-99.8); MEAN PLATELET VOLUME 12.1 fL (8.7-11.7); PLATELET CLUMPS FLAG 0 (0-99); PLATELET COUNT 155 10^3/uL (150-400); RED BLOOD CELL COUNT 3.13 10^6/uL (4.40-6.38); RED CELL DISTRIBUTION WIDTH 13.1 % (11.5-15.2)
[2016-12-23 06:31] LABS: ANION GAP 7 mEq/L (8-16); CALCIUM 8.3 mg/dL (8.5-10.4); CARBON DIOXIDE 24 mEq/l (22-31); CHLORIDE 110 mEq/L (97-110); CREATININE 0.9 mg/dL (0.7-1.3); GLOMERULAR FILTRATION RATE > 60; GLUCOSE 133 mg/dL (70-100); POTASSIUM 4.5 mEq/L (3.5-5.2); SODIUM 141 mEq/L (134-144)
[2016-12-23] MEDS: HYDROCODONE/APAP 5/325 TAB PO PRN ×2 (08:15→20:09)
[2016-12-23] MEDS: INSULIN LISPRO 100 UNIT/ML SC SCH ×3 (08:15→18:01)
[2016-12-23] MEDS: PANTOPRAZOLE SODIUM 40 MG TAB PO SCH (08:28)
[2016-12-23] MEDS: ATORVASTATIN CALCIUM 20 MG TAB PO SCH (08:28)
[2016-12-23] MEDS: ASPIRIN EC 81 MG TAB PO SCH (08:28)
[2016-12-23] MEDS ORDERED: METOPROLOL TARTRATE 25 MG TAB PO SCH (09:00)
[2016-12-23] MEDS ORDERED: AMIODARONE HCL 200 MG TAB PO SCH (09:00)
[2016-12-23] MEDS: FLUTICASONE/SALMETER 250/50MCG DISKUS IH SCH (09:08)
[2016-12-23] MEDS: SENNOSIDES/DOCUSATE SODIUM TAB PO SCH ×2 (09:25→21:30)
[2016-12-23] MEDS: CHOLECALCIFEROL VIT D3 1,000 UNITS TAB PO SCH (09:26)
[2016-12-23] MEDS: ASCORBIC ACID 500 MG TAB PO SCH (09:26)
--- NOTE | 2016-12-23 09:34 | SOAPPROG ---
SOAP Progress Note Assessment/Plan: Assessment: POD#3 CABG x 5 (SNOW-LAD, SV-D2, SV-OM1, SV sequentially to bifurcating OM2), prophylactic AtriClip LLAA Sx severe CAD w preserved LV systolic fx - s/p CABG5. Extubated in the OR. Hemodynamically stable early postop course. No prolonged vasoactive support or backup pacing. Secondary prevention w ASA, BB as tolerated and statin when eating well. Postop PAF - AF w CVR responsive to amio load. Some silvia-conversion mathew. No sustained pauses. HRs 60-90s thru this am. DOAC only if recurrent arrhythmia. Postop ileus - Resolved w NGT decompression and supportive therapy. DM2 - Diet controlled, noncompliant with metformin. Preop A1c of 7.5%. Postop hyperglycemia managed with insulin gtt, transitioning to SSI and OHA. ELIUD on CPAP - Stable. Home unit back in use. RAD - Extubated with moderate suppl O2 req. Mucolytics and nebs prn. Transition to home MDIs in progress. Plan: NGT d/cd. CL diet thru noon then AAT. Cont bowel regimen. Remove ewa drains. Amio 200 mg daily. Cont Metoprolol 12.5 mg BID. Cont inc activity as tolerated. Wean O2. Dispo - Anticipate home next 1-2 days, pending stability rhythm. 12/23/16 07:30 Subjective: Feeling better. Passing gas. +BM. Morning ambulation with relative ease. Objective: Vital Signs Temp Pulse Resp BP Pulse Ox 36.8 C 98 20 117/79 91 L 12/23/16 07:13 12/23/16 09:25 12/23/16 09:12 12/23/16 09:25 12/23/16 09:12 Laboratory Results 12/23/16 05:40 12/23/16 05:40 12/22/16 12/23/16 12/24/16 05:59 05:59 05:59 Intake Total 1720 1545 Output Total 1920 1555 235 Balance -200 -10 -235 Holding SR. CXR-> no pulm vasc congestion, bibasilar atelectasis. CTOP at removal criteria. Minimal NGT output. Balanced I/Os. Labs ok. WBC beginning to fall. Physical Exam - Physical Exam General Appearance: alert, no apparent distress EENT: other (NGT d/d by Dr Hyde) Respiratory: lungs clear, other (blakes x 3 to bulb suction, thin serosang drainage) Cardiac/Chest: regular rate, rhythm, other (Sternum grossly stable. Sternotomy CDI) Abdomen: normal bowel sounds, non-tender, soft Skin: normal color Extremities: swelling (trace), other (LLE venotomy CDI. Low leg tract ecchymotic , but soft) ICD10 Worksheet Patient Problems: Problems Problem Status Onset Acute blood loss anemia Acute Chronic Disease Mgmt/Transitional Care Acute Postoperative atrial fibrillation Acute Postoperative ileus Acute S/P CABG x 5 Acute ~12/20/16 CAD in [place] artery Chronic Diabetes mellitus Chronic Primary osteoarthritis of left knee Chronic
[2016-12-23] MEDS ORDERED: METOPROLOL TARTRATE 5 MG/5 ML INJ IVP ONE ×2 (09:49→10:30)
--- NOTE | 2016-12-23 10:16 | SOAPPROG ---
SOAP Progress Note Assessment/Plan: Assessment: POD#3 CABG x 5 (SNOW-LAD, SV-D2, SV-OM1, SV sequentially to bifurcating OM2), prophylactic AtriClip LLAA Sx severe CAD w preserved LV systolic fx - s/p CABG5. Extubated in the OR. Hemodynamically stable early postop course. No prolonged vasoactive support or backup pacing. Secondary prevention w ASA, BB as tolerated and statin when eating well. Postop PAF - AF w CVR responsive to amio load. Some silvia-conversion mathew. No sustained pauses. HRs 60-90s thru this am. DOAC only if recurrent arrhythmia. Postop ileus - Resolved w NGT decompression and supportive therapy. DM2 - Diet controlled, noncompliant with metformin. Preop A1c of 7.5%. Postop hyperglycemia managed with insulin gtt, transitioning to SSI and OHA. ELIUD on CPAP - Stable. Home unit back in use. RAD - Extubated with moderate suppl O2 req. Mucolytics and nebs prn. Transition to home MDIs in progress. Plan: NGT d/cd. CL diet thru noon then AAT. Cont bowel regimen. Remove ewa drains. Amio 200 mg daily. Cont Metoprolol 12.5 mg BID. Cont inc activity as tolerated. Wean O2. Dispo - Anticipate home next 1-2 days, pending stability rhythm. 12/23/16 07:30 Objective: Vital Signs Temp Pulse Resp BP Pulse Ox 36.8 C 109 H 20 136/84 H 91 L 12/23/16 07:13 12/23/16 09:58 12/23/16 09:12 12/23/16 09:58 12/23/16 09:12 Laboratory Results 12/23/16 05:40 12/23/16 05:40 12/22/16 12/23/16 12/24/16 05:59 05:59 05:59 Intake Total 1720 1545 200 Output Total 1920 1555 235 Balance -200 -10 -35 ICD10 Worksheet Patient Problems: Problems Problem Status Onset Acute blood loss anemia Acute Chronic Disease Mgmt/Transitional Care Acute Postoperative atrial fibrillation Acute Postoperative ileus Acute S/P CABG x 5 Acute ~12/20/16 CAD in [place] artery Chronic Diabetes mellitus Chronic Primary osteoarthritis of left knee Chronic
[2016-12-23] MEDS: AMIODARONE HCL 200 MG TAB PO SCH (20:10)
[2016-12-23] MEDS: MONTELUKAST SODIUM 10 MG TAB TUBE SCH (20:10)
[2016-12-23] MEDS: APIXABAN 2.5 MG TAB PO SCH (20:10)
[2016-12-23] MEDS: METOPROLOL TARTRATE 25 MG TAB PO SCH (20:11)
[2016-12-24] MEDS: PANTOPRAZOLE SODIUM 40 MG TAB PO SCH (08:22)
[2016-12-24] MEDS: CHOLECALCIFEROL VIT D3 1,000 UNITS TAB PO SCH (08:23)
[2016-12-24] MEDS: ATORVASTATIN CALCIUM 20 MG TAB PO SCH (08:23)
[2016-12-24] MEDS: METOPROLOL TARTRATE 25 MG TAB PO SCH ×2 (08:24→21:27)
[2016-12-24] MEDS: APIXABAN 2.5 MG TAB PO SCH ×2 (08:26→21:27)
[2016-12-24] MEDS: ASPIRIN 81 MG CHEWABLE TAB PO SCH (08:26)
[2016-12-24] MEDS: ASCORBIC ACID 500 MG TAB PO SCH (08:26)
[2016-12-24] MEDS: SENNOSIDES/DOCUSATE SODIUM TAB PO SCH (08:27)
[2016-12-24] MEDS: INSULIN LISPRO 100 UNIT/ML SC SCH ×2 (08:29→12:19)
[2016-12-24] MEDS: FLUTICASONE/SALMETER 250/50MCG DISKUS IH SCH (08:31)
--- NOTE | 2016-12-24 08:36 | SOAPPROG ---
SOAP Progress Note Assessment/Plan: POD#4 CABG x 5 (SNOW-LAD, SV-D2, SV-OM1, SV sequentially to bifurcating OM2), prophylactic AtriClip LLAA Sx severe CAD w preserved LV systolic fx - s/p CABG5. Extubated in the OR. Hemodynamically stable early postop course. No prolonged vasoactive support or backup pacing. Secondary prevention w ASA, BB as tolerated and statin. Acute blood loss anemia - H/H stable without blood product transfusions Postop PAF - with intermittent sinus pauses and rapid ventricular rates - continue BB/Amio/Eliquis Postop ileus - Resolved w NGT decompression and supportive therapy. DM2 - Diet controlled, noncompliant with metformin. Preop A1c of 7.5%. Postop hyperglycemia managed with insulin gtt, transitioning to SSI and OHA. ELIUD on CPAP - Stable. Home unit back in use. RAD - Extubated with moderate suppl O2 req. Mucolytics and nebs prn. Transition to home MDIs in progress. Disposition - plan for home without services once rhythm/rate stabilizes 12/24/16 12:49 Subjective: Denies CP/palpitations/SOB. Pain well controlled. No N/V. Tolerating PO. Objective: Vital Signs Temp Pulse Resp BP Pulse Ox 36.6 C 85 17 111/70 95 12/23/16 23:39 12/24/16 08:24 12/23/16 23:39 12/24/16 08:24 12/23/16 23:39 Laboratory Results 12/23/16 05:40 12/23/16 05:40 12/23/16 12/24/16 12/25/16 05:59 05:59 05:59 Intake Total 1545 1770 Output Total 1555 1060 Balance -10 710 Physical Exam - Physical Exam General Appearance: WD/WN, alert, no apparent distress EENT: No scleral icterus (R), No scleral icterus (L) Neck: normal inspection Respiratory: chest non-tender, lungs clear, normal breath sounds Cardiac/Chest: regular rate, rhythm, irregularly irregular Abdomen: non-tender, soft, distended Skin: normal color, warm/dry Extremities: No pedal edema Neuro/Psych: no motor/sensory deficits, alert, normal mood/affect, oriented x 3 ICD10 Worksheet Patient Problems: Problems Problem Status Onset Acute blood loss anemia Acute Chronic Disease Mgmt/Transitional Care Acute Postoperative atrial fibrillation Acute Postoperative ileus Acute S/P CABG x 5 Acute ~12/20/16 CAD in [place] artery Chronic Diabetes mellitus Chronic Primary osteoarthritis of left knee Chronic
[2016-12-24] MEDS ORDERED: AMIODARONE HCL 100 ML IV ONE ×2 (09:37→12:53)
--- NOTE | 2016-12-24 17:16 | SOAPPROG ---
SOAP Progress Note Assessment/Plan: Assessment: Cardiology ([place]) 1. CAD s/p CABG x 5. POD #4. Continues to improve clinically. 2. Postoperative paroxysmal afib, persistent since 8 am on 12/23/16. Ventricular rates are adequate but not perfectly controlled with large range. No recurrent pauses seen on telemetry. Patient is aware of irregular HR but denies any presyncope, syncope, or worsened MARTINI. 3. T2DM. 4. HTN. 5. Hyperlipidemia. Plan: 1. Continue current doses of metoprolol, amiodarone, and Eliquis. 2. Will continue to monitor rhythm and strongly consider DC cardioversion prior to discharge if he does not revert back to NSR before discharge. Objective: Vital Signs Temp Pulse Resp BP Pulse Ox 36.9 C 135 H 17 141/87 H 94 12/24/16 16:00 12/24/16 16:00 12/24/16 16:00 12/24/16 16:00 12/24/16 16:00 Laboratory Results 12/23/16 05:40 12/23/16 05:40 12/23/16 12/24/16 12/25/16 05:59 05:59 05:59 Intake Total 1545 1770 500 Output Total 1555 1060 200 Balance -10 710 300 ICD10 Worksheet Patient Problems: Problems Problem Status Onset Acute blood loss anemia Acute Chronic Disease [facility]/Transitional Care Acute Postoperative atrial fibrillation Acute Postoperative ileus Acute S/P CABG x 5 Acute ~12/20/16 CAD in [place] artery Chronic Diabetes mellitus Chronic Primary osteoarthritis of left knee Chronic
[2016-12-24] MEDS: MONTELUKAST SODIUM 10 MG TAB PO SCH (21:26)
[2016-12-24] MEDS: AMIODARONE HCL 200 MG TAB PO SCH (21:27)
[2016-12-24] MEDS: HYDROCODONE/APAP 5/325 TAB PO PRN (21:27)
--- NOTE | 2016-12-25 07:07 | SOAPPROG ---
SOAP Progress Note Assessment/Plan: Assessment: POD#5 CABG x 5 (SNOW-LAD, SV-D2, SV-OM1, SV sequentially to bifurcating OM2), prophylactic AtriClip LLAA Sx severe CAD w preserved LV systolic fx - s/p CABG5. Extubated in the OR. Hemodynamically stable early postop course. No prolonged vasoactive support or backup pacing. Tubes and wires out. Secondary prevention w ASA, statin, and BB uptitrated as tolerated. Postop PAF - AF w VVR, yet to stay in SR longer than 12hr. Amio load completed, transitioning to higher oral dose. Ongoing BB escalation. Eliquis added for [id number] score of 4. Postop ileus - Resolved w NGT decompression and supportive therapy. Acute expected blood loss anemia - Stable. No blood transfusions required. DM2 - Diet controlled, noncompliant with metformin. Preop A1c of 7.5%. Postop hyperglycemia managed with insulin gtt, transitioning to SSI and OHA. ELIUD on CPAP - Stable. Home unit back in use. RAD - Controlled. Plan: Cont Amio 200 mg twice daily. Inc Metoprolol to 37.5 mg BID. Cont inc activity as tolerated. Dispo - Anticipate home tomorrow if rhythm/HR stable. 12/25/16 07:06 Subjective: Feels well. Morning walk well tolerated. No longer using assist device. Hearty appetite. Looking forward to home soon. Objective: Vital Signs Temp Pulse Resp BP Pulse Ox 36.6 C 79 19 129/84 H 88 L 12/25/16 04:00 12/25/16 04:00 12/25/16 04:00 12/25/16 04:00 12/25/16 06:00 Laboratory Results 12/23/16 05:40 12/23/16 05:40 12/24/16 12/25/16 12/26/16 05:59 05:59 05:59 Intake Total 1770 1080 Output Total 1060 900 Balance 710 180 PAF throughout day yest, holding SR since midnight. Off O2. Balanced I/Os - Pending Discharge Pending Discharge Within 24 Hours: Yes Pending Discharge Date: 12/26/16 Pending Discharge Time: 11:00 Physical Exam - Physical Exam General Appearance: alert, no apparent distress Respiratory: lungs clear Cardiac/Chest: regular rate, rhythm, other (Sternum grossly stable. Sternotomy and LLE venotomy CDI) Abdomen: non-tender, soft Skin: warm/dry Extremities: swelling (trace vein donor leg) ICD10 Worksheet Patient Problems: Problems Problem Status Onset Acute blood loss anemia Acute Chronic Disease Mgmt/Transitional Care Acute Postoperative atrial fibrillation Acute Postoperative ileus Acute S/P CABG x 5 Acute ~12/20/16 CAD in [place] artery Chronic Diabetes mellitus Chronic Primary osteoarthritis of left knee Chronic
[2016-12-25] MEDS: CHOLECALCIFEROL VIT D3 1,000 UNITS TAB PO SCH (08:00)
[2016-12-25] MEDS: METOPROLOL TARTRATE 25 MG TAB PO SCH (08:00)
[2016-12-25] MEDS: AMIODARONE HCL 200 MG TAB PO SCH ×2 (08:00→21:07)
[2016-12-25] MEDS: APIXABAN 2.5 MG TAB PO SCH ×2 (08:01→21:06)
[2016-12-25] MEDS: ASPIRIN 81 MG CHEWABLE TAB PO SCH (08:01)
[2016-12-25] MEDS: PANTOPRAZOLE SODIUM 40 MG TAB PO SCH (08:01)
[2016-12-25] MEDS: ASCORBIC ACID 500 MG TAB PO SCH (08:01)
[2016-12-25] MEDS: ATORVASTATIN CALCIUM 20 MG TAB PO SCH (08:01)
[2016-12-25] MEDS ORDERED: METOPROLOL TARTRATE 25 MG TAB PO ONE ×2 (09:13→12:30)
[2016-12-25] MEDS: FLUTICASONE/SALMETER 250/50MCG DISKUS IH SCH (09:42)
[2016-12-25] MEDS: METOPROLOL TARTRATE 50 MG TAB PO SCH (21:06)
[2016-12-25] MEDS: HYDROCODONE/APAP 5/325 TAB PO PRN (21:06)
[2016-12-25] MEDS: MONTELUKAST SODIUM 10 MG TAB PO SCH (21:06)
[2016-12-26] MEDS: APIXABAN 2.5 MG TAB PO SCH (08:03)
[2016-12-26] MEDS: ASCORBIC ACID 500 MG TAB PO SCH (08:03)
[2016-12-26] MEDS: CHOLECALCIFEROL VIT D3 1,000 UNITS TAB PO SCH (08:03)
[2016-12-26] MEDS: ASPIRIN 81 MG CHEWABLE TAB PO SCH (08:03)
[2016-12-26] MEDS: AMIODARONE HCL 200 MG TAB PO SCH (08:03)
[2016-12-26] MEDS: PANTOPRAZOLE SODIUM 40 MG TAB PO SCH (08:03)
[2016-12-26] MEDS: ATORVASTATIN CALCIUM 20 MG TAB PO SCH (08:03)
[2016-12-26] MEDS: METOPROLOL TARTRATE 50 MG TAB PO SCH (08:04)
[2016-12-26] MEDS ORDERED: FUROSEMIDE 40 MG TAB PO SCH (09:00)
[2016-12-26] MEDS ORDERED: POTASSIUM CL 20 MEQ TAB PO SCH (09:00)
--- NOTE | 2016-12-26 09:09 | SOAPPROG ---
SOAP Progress Note Assessment/Plan: POD#6 CABG x 5 (SNOW-LAD, SV-D2, SV-OM1, SV sequentially to bifurcating OM2), prophylactic AtriClip LLAA Sx severe CAD w preserved LV systolic fx - s/p CABG5. Extubated in the OR. Hemodynamically stable early postop course. No prolonged vasoactive support or backup pacing. Tubes and wires out. Secondary prevention w ASA, statin, and BB uptitrated as tolerated. Postop PAF - Continue Amio/BB/Eliquis Postop ileus - Resolved Acute expected blood loss anemia - Stable. No blood transfusions required. DM2 - Diet controlled, noncompliant with metformin. Preop A1c of 7.5%. Postop hyperglycemia managed with insulin gtt, transitioning to SSI and OHA. ELIUD on CPAP - Stable. Home unit back in use. RAD - Controlled Disposition - Home today without services Subjective: Feels well. Ready to go home. Objective: Vital Signs Temp Pulse Resp BP Pulse Ox 36.8 C 74 20 117/69 95 12/26/16 07:44 12/26/16 07:44 12/26/16 07:44 12/26/16 07:44 12/26/16 07:44 Laboratory Results 12/23/16 05:40 12/23/16 05:40 12/25/16 12/26/16 12/27/16 05:59 05:59 05:59 Intake Total 1080 2295 Output Total 900 1395 Balance 180 900 Physical Exam - Physical Exam General Appearance: WD/WN, alert, no apparent distress, obese EENT: No scleral icterus (R), No scleral icterus (L) Neck: normal inspection Respiratory: No respiratory distress Cardiac/Chest: regular rate, rhythm Abdomen: non-tender, soft, distended Skin: normal color, warm/dry Extremities: pedal edema (Trace B/L LE) Neuro/Psych: no motor/sensory deficits, alert, normal mood/affect, oriented x 3 ICD10 Worksheet Patient Problems: Problems Problem Status Onset Acute blood loss anemia Acute Chronic Disease Mgmt/Transitional Care Acute Postoperative atrial fibrillation Acute Postoperative ileus Acute S/P CABG x 5 Acute ~12/20/16 CAD in [place] artery Chronic Diabetes mellitus Chronic Primary osteoarthritis of left knee Chronic
[2016-12-26] MEDS: FLUTICASONE/SALMETER 250/50MCG DISKUS IH SCH (10:31)
[2016-12-26 12:22] VITALS: RESP 20; TEMP 98.6; O2SAT 92
[2016-12-26 13:11] VITALS: BP 137/83; PULSE 73
--- NOTE | 2016-12-28 14:22 | PDDCSUM ---
Discharge Summary Discharge Summary: ADMISSION DATE: 12/20/16 DISCHARGE DATE: 12/26/16 ADMISSION DX: 1. Coronary atherosclerotic disease 2. Unstable angina DISCHARGE DX: 1. Coronary atherosclerotic disease 2. Unstable angina 3. Post-operative atrial fibrillation 4. Acute blood loss anemia SECONDARY DX: 1. Diabetes mellitus 2 2. Obstructive sleep apnea 3. Reactive airway disease 4. GERD PROCEDURES: 12/20/16, Luciano Hyde 1. CABGx5 (ARMENDARIZ-LAD, SVG-second diagonal, SVG-lateral circumflex, sequential SVG -posterolateral circumflex and posterior tibial circumflex) 2. AtriClip FARIBA 3. EVH HPI: Pt with unstable angina and severe CAD. HOSPITAL COURSE: The patient underwent the procedures above and was transferred to the ICU in stable condition. He had post-operative atrial fibrillation and medically converted to sinus rhythm with amiodarone and metoprolol. Eliquis was prescribed for thromboprophyplxsis. CONDITION - Good DISPOSITION: - Home, self-care ACTIVITY: Pt was instructed on sternal precautions, activity limitations, and which problems to call [facility] with. Please see Discharge Plan in chart for specifics. D/C MEDICATIONS: 1. Albuterol Sulfate [Albuterol Inhaler Hfa] 1 - 2 puffs IH Q4H 2. Ascorbic Acid [Vitamin C 500 mg (*)] 1,000 mg PO DAILY 3. Fluticasone/Salmeter 250/50Mcg [Advair 250/50 (*)] 1 each IH DAILY 4. Montelukast Sodium [Singulair 10 mg (*)] 10 mg PO HS 5. [place]-3 Fatty Acids/Fish Oil [[place] 3 1,000 mg Softgel] 3 each PO DAILY 6. Aspirin EC [Aspirin EC 81 mg (*)] 81 mg PO BID 7. Atorvastatin Calcium [Lipitor 20 mg (*)] 20 mg PO DAILY 8. Cholecalciferol Vit D3 [Vitamin D3 (*)] 2,000 units PO DAILY 9. Psyllium Husk/Aspartame [Metamucil Fiber Singles Packet] 3.4 gm PO DAILY 10. Ranitidine HCl [Zantac] 150 mg PO BID 11. Vitamin E Acetate [VITAMIN E] 400 unit PO DAILY 12. Acetaminophen [Tylenol 325mg (*)] 325 - 650 mg PO Q4HRS PRN 13. Amiodarone HCl [Pacerone (*)] 200 mg PO BID 14. Apixaban [Eliquis] 2.5 mg PO BID 15. Furosemide [Lasix 40 MG (*)] 40 mg PO DAILY 16. Hydrocodone/APAP 5/325 [[place] 5/325 (*)] 1 - 2 tab PO Q4HRS PRN 17. Metoprolol Tartrate [Lopressor 50 mg (*)] 37.5 mg PO BID 18. Potassium Cl [Klor-Con 20 meq (*)] 20 meq PO DAILY PENDING STUDIES/LABS: 1. CXR 01/07/17 F/U APPOINTMENTS: 1. Luciano Hyde - 01/07/17, 9:30 AM 2. Navi [facility] to be arranged at surgical follow-up
== END 2016-12-26 14:05 | disposition home or self-care (01) | DRG 236 ==
LOC: F3E 12-20 06:02 → F2N 12-20 11:23 → F2W 12-21 16:47
PROVIDERS: ADMIT Thoracic Surgery (Cardiothoracic Vascular Surgery); ATTEND Thoracic Surgery (Cardiothoracic Vascular Surgery)
DX: I25.110 Atherosclerotic heart disease of native coronary artery with unstable angina pectoris (principal); D62 Acute posthemorrhagic anemia; I48.91 Unspecified atrial fibrillation; E11.9 Type 2 diabetes mellitus without complications; G47.33 Obstructive sleep apnea (adult) (pediatric); J45.909 Unspecified asthma, uncomplicated; K21.9 Gastro-esophageal reflux disease without esophagitis; I10 Essential (primary) hypertension; E78.5 Hyperlipidemia, unspecified
CPT/HCPCS: 82947-QW; 97116-GP; 97161-GP; 97165-GO; 97530-GP; 97535-GO; G8978-GP-CL; G8979-GP-CI; G8979-GP-CJ; G8980-GP-CI; G8987-GO-CL; G8988-GO-CI; J0153; J0282; J0690; J1265; J1644; J1815; J1885; J2001; J2150; J2250; J2260; J2370; J2405; J2440; J2704; J2720; J2765; J2930; J3010; J3475; J3490; J7060; P9041; Q9967

== ENCOUNTER → 2017-01-03 | Outpatient (CLI) | payer OTHER | LOC: FIMAGING 14:55 | PROVIDERS: ATTEND Physician Assistant | DX: Z09 Encounter for follow-up examination after completed treatment for conditions other than malignant neoplasm (principal); Z95.1 Presence of aortocoronary bypass graft; R09.02 Hypoxemia; J98.11 Atelectasis ==

== ENCOUNTER 2017-11-19 16:40 | Inpatient (IN) | payer OTHER ==
[2017-11-19] MEDS ORDERED: ACETAMINOPHEN 325 MG TAB PO PRN (18:10)
[2017-11-19] MEDS ORDERED: ONDANSETRON DISINTEGRATING 4 MG TAB PO PRN (18:10)
[2017-11-19] MEDS ORDERED: ONDANSETRON 4 MG/2 ML VIAL IVP PRN (18:10)
[2017-11-19] MEDS ORDERED: ALBUTEROL 3 ML DEYVIAL IH PRN (18:10)
[2017-11-19] MEDS ORDERED: D50W 25 GM/50 ML SYR IVP PRN (18:12)
--- NOTE | 2017-11-19 18:16 | PDGENHP ---
History and Physical - Chief Complaint right chest wall pain - History of Present Illness This is a 72 yo male with hx of CAD s/p CABG in Nov 2016 who slipped on ice outside his home and fell down the stairs on Friday. He did not seek medical help. He had persistent back pain and malaise and at the request of his he presented to urgent care today. Imaging is c/w a displaced 9th rib fracture, small to moderate anterior basilar right pneumothorax, and extensive right chest wall subcutaneous emphysema. He is on RA. Other than mild pain with movement, he does not have any complaints. He denies substernal chest pain, palpitations, leg swelling, or other. He reports that he is no longer on chronic AC. He does take an aspirin. He has been afebrile. He does not have any resp sx's PMHx: Dm (diet controlled), s/p CABG x 5, CAD, Hx of TKR, OA left knee, HLD, HTN , hx of ETOH use Soc: denies Tobacco and ETOh, FmHx: NC Data: -Imaging per above, personally reviewed -Slight leukocytosis, otherwise labs unremarkable History Information - Allergies/Home Medication List Allergies/Adverse Reactions: No Known Allergies Allergy (Verified 06/02/16 17:20) Home Medications: Albuterol Sulfate [Albuterol Inhaler Hfa] 1 - 2 puffs IH Q4H PRN 05/31/14 [Last Taken 07/12/15] Ascorbic Acid [Vitamin C 500 mg (*)] 1,000 mg PO DAILY 05/31/14 [Last Taken ] Fluticasone/Salmeter 250/50Mcg [Advair 250/50 (*)] 1 each IH DAILY 05/31/14 [ Last Taken 12/20/16 05:00] Montelukast Sodium [Singulair 10 mg (*)] 10 mg PO HS 05/31/14 [Last Taken ] [place]-3 Fatty Acids/Fish Oil [[place] 3 1,000 mg Softgel] 3 each PO DAILY [Last Taken 12/19/16] Atorvastatin Calcium [Lipitor 20 mg (*)] 20 mg PO DAILY 12/18/16 [Last Taken ] Cholecalciferol Vit D3 [Vitamin D3 (*)] 2,000 units PO DAILY 12/18/16 [Last Taken 12/19/16] Psyllium Husk/Aspartame [Metamucil Fiber Singles Packet] 3.4 gm PO DAILY [Last Taken 12/19/16] Ranitidine HCl [Zantac] 150 mg PO BID 12/18/16 [Last Taken 12/19/16] Vitamin E Acetate [VITAMIN E] 400 unit PO DAILY 12/18/16 [Last Taken 12/19/16] I have personally reviewed and updated: medical history, social history - Social History Smoking Status: Never smoked Review of Systems Review of Systems: ROS: 10pt was reviewed & negative except for what was stated in HPI & below Physical Exam Physical Exam: Temp Pulse Resp BP Pulse Ox 36.9 C 60 18 134/76 H 93 11/19/17 16:57 11/19/17 16:57 11/19/17 16:57 11/19/17 16:57 11/19/17 16:57 Constitutional: no apparent distress Eyes: PERRL, EOMI Ears, Nose, Mouth, Throat: moist mucous membranes, hearing normal Cardiovascular: regular rate and rhythym, No edema Respiratory: no respiratory distress, no rales or rhonchi, clear to auscultation Gastrointestinal: normoactive bowel sounds, soft, non-tender abdomen Skin: warm Musculoskeletal: full muscle strength Neurologic: AAOx3 Psychiatric: interacting appropriately, not anxious, not encephalopathic, thought process linear Lymph, Heme, Immunologic: No petechiae Assessment & Plan Assessment: #s/p Fall, mechanical #Displace 9th rib fracture #Anterior basilar right pneumothorax with pneumomediastinum and right chest wall subcutaneous emphysema #Leukocytosis, likely reactive, no e/o infection, afebrile #Hx of ELIUD #DM, diet controlled #Hx of CAD, s/p CABG x 5 #Hx of postoperative AFib Plan: -observation -Overall hemodynamically and respiratory stable -I have discussed the case with Dr. Perera with trauma who will consult. There is not need for placing a chest tube at this time -cont appropriate home meds -repeat CBC in a.m -SCD's
[2017-11-19] MEDS: ACETAMINOPHEN 500 MG TAB PO SCH (20:06)
[2017-11-19] MEDS: amLODIPine BESYLATE 5 MG TAB PO SCH (20:07)
[2017-11-19] MEDS: ATORVASTATIN CALCIUM 20 MG TAB PO SCH (20:07)
[2017-11-19] MEDS: LOSARTAN POTASSIUM 25 MG TAB PO SCH (20:09)
[2017-11-19] MEDS: MONTELUKAST SODIUM 10 MG TAB PO SCH (20:09)
[2017-11-19] MEDS: ASPIRIN EC 81 MG TAB PO SCH (20:09)
[2017-11-19] MEDS: FAMOTIDINE 20 MG TAB PO SCH (20:09)
[2017-11-19] MEDS: METOPROLOL TARTRATE 25 MG TAB PO SCH (20:10)
[2017-11-19] MEDS: LIDOCAINE 5% 1 EA PATCH TD SCH ×2 (20:46→21:14)
[2017-11-19] MEDS ORDERED: NON-FORMULARY NEW DRUG (Ranitidine Hcl [Zantac] 150 MG) PO SCH (21:00)
[2017-11-19] MEDS ORDERED: METOPROLOL TARTRATE 50 MG TAB PO SCH (21:00)
[2017-11-19] MEDS: PATCH REMOVAL 1 EA PATCH TD SCH (21:39)
[2017-11-19] MEDS: FLUTICASONE/SALMETER 100/50MCG DISKUS IH SCH ×2 (22:55→22:57)
--- NOTE | 2017-11-20 01:15 | GCON ---
[f rep st] CONSULTATION REFERRING PHYSICIAN: Ashu Amezquita MD REASON FOR CONSULTATION: Ninth right rib fracture, small hemothorax, small pneumothorax, extensive s ubcutaneous and mediastinal emphysema. HISTORY: The patient is a 72-year-old white male status post coronary artery bypass grafting in 2016, who slipped on the ice outside his home on Friday morning and fell down the stairs. He pelayo d discomfort, did not seek medical care at that time. He does use CPAP at night and did so last nigh t. At his 's insistence, he went for further evaluation today and was found to have a 9th right rib fracture with a right pneumothorax and extensive right chest wall subcutaneous emphysema. His sa turations are stable on room air. He does complain of a slight change in his voice. There is medias tinal emphysema, as well. He is comfortable at this point, although I have added a Lidoderm patch and changed his Tylenol to a scheduled dose. ALLERGIES: He has no known drug allergies. MEDICATIONS: Please see his chart for his medications. PHYSICAL EXAMINATION: He does have subcutaneous emphysema in his right chest and proximal arm. [place]ard th sounds are equal. I do not detect any E-A changes. PLAN: Continue to use his CPAP, an EzPAP and IS. A followup chest x-ray will be obtained in the [facility]. I do not see a need to place a chest tube at this time. He appears quite comfortable. /[id number]/MODL
[2017-11-20] MEDS: ACETAMINOPHEN 500 MG TAB PO SCH ×3 (04:19→20:46)
[2017-11-20] MEDS ORDERED: OMEGA PO SCH (09:00)
[2017-11-20] MEDS ORDERED: NON-FORMULARY NEW DRUG (Psyllium Husk/Aspartame [Metamucil Fiber Singles Packet] 3.4 GM) PO SCH (09:00)
[2017-11-20] MEDS ORDERED: FATTY ACIDS PO SCH (09:00)
[2017-11-20] MEDS ORDERED: FISH OIL PO SCH (09:00)
[2017-11-20] MEDS ORDERED: VITAMIN E ACETATE 400 UNIT PO SCH (09:00)
[2017-11-20] MEDS: INSULIN LISPRO 100 UNIT/ML SC SCH ×3 (09:07→17:33)
[2017-11-20] MEDS: PSYLLIUM METAMUCIL 1 PKT PO SCH (09:19)
[2017-11-20] MEDS: ASCORBIC ACID 500 MG TAB PO SCH (09:19)
[2017-11-20] MEDS: OMEGA-3 FATTY ACIDS 1,000 MG CAP PO SCH (09:20)
[2017-11-20] MEDS: METOPROLOL TARTRATE 25 MG TAB PO SCH ×2 (09:20→20:46)
[2017-11-20] MEDS: amLODIPine BESYLATE 5 MG TAB PO SCH ×2 (09:21→20:46)
[2017-11-20] MEDS: ASPIRIN EC 81 MG TAB PO SCH ×2 (09:21→20:47)
[2017-11-20] MEDS: LOSARTAN POTASSIUM 25 MG TAB PO SCH ×2 (09:21→20:47)
[2017-11-20] MEDS: LIDOCAINE 5% 1 EA PATCH TD SCH (09:22)
[2017-11-20] MEDS: FAMOTIDINE 20 MG TAB PO SCH ×2 (09:22→20:47)
[2017-11-20] MEDS: CHOLECALCIFEROL VIT D3 1,000 UNITS TAB PO SCH (09:22)
[2017-11-20] MEDS: Vitamin E 400 UNIT PO SCH (09:23)
[2017-11-20] MEDS: FLUTICASONE/SALMETER 100/50MCG DISKUS IH SCH ×2 (09:28→20:53)
--- NOTE | 2017-11-20 11:57 | SOAPPROG ---
[facility] Progress Note Assessment/Plan: 11/20/17 11:53 Assessment: PTX stable, Pain controlled. voice improved Plan: F/u CXR tomorrow. If stable then can follow resolution as an outpatient 11/20/17 11:55 Subjective: My voice is better and my pain is controlled. Objective: Vital Signs Temp Pulse Resp BP Pulse Ox 36.9 C 53 L 16 119/65 94 11/20/17 11:26 11/20/17 11:26 11/20/17 11:26 11/20/17 11:26 11/20/17 11:26 11/19/17 11/20/17 11/21/17 05:59 05:59 05:59 Intake Total 300 Output Total 0 Balance 300 - Time Spent With Patient Time Spent With Patient: 25 Physical Exam - Physical Exam General Appearance: WD/WN, alert, no apparent distress Neck: other (crepitus on right less prominent) Respiratory: chest non-tender, lungs clear, normal breath sounds, other (right chest crepitus continues) Cardiac/Chest: regular rate, rhythm ICD10 Worksheet Patient Problems: Problems Problem Status Onset Acute blood loss anemia Acute Chronic Disease [facility]/Transitional Care Acute Postoperative atrial fibrillation Acute Postoperative ileus Acute S/P CABG x 5 Acute ~12/20/16 CAD in [place] artery Chronic Diabetes mellitus Chronic Primary osteoarthritis of left knee Chronic
--- NOTE | 2017-11-20 12:26 | ASMTCMCOM ---
CM Note CM Note Notes: Spoke w/RN, pt cleared by PT. Anticipate will dc home w/support of when medically stable. CM available when medically stable. DC Plan: Independent Date Signed: 11/20/2017 12:25 PM Electronically Signed By:Melanie Mccall RN
--- NOTE | 2017-11-20 13:43 | HOSPPROG ---
Hospitalist Progress Note Assessment/Plan: DIAGNOSES: -status post fall on ice with injury, occurred 11/17 -right 9th rib fracture -right pneumothorax, small hemothorax, pneumo mediastinum, and extensive subcutaneous and deep soft tissue air in the neck and thoracic areas -some mild hypophonia and hoarseness of voice at presentation -type 2 Dm (diet controlled) -CAD, s/p CABG x 5, HLD, HTN -Hx of TKR -hx of ETOH use I reviewed the patient's condition in detail with Dr. Perera today as well as the recommended treatment plan, and I discussed all these issues with the patient and his in detail at the bedside and answered their questions Risks include worsening pneumothorax, worsening hemothorax, airway occlusion due to air dissection into soft tissue planes, infection in soft tissues PLANS: -repeat chest x-ray in the morning -careful monitoring for any respiratory difficulties, or signs of infection -monitor blood sugars -continue his usual antihypertensives, aspirin, statin SUBJECTIVE: -the patient does still have some mild pleuritic pain, as well as some muscular pain with movements -he still has a hoarse voice -no odynophagia, nausea, visible bleeding, chills or sweats OBJECTIVE Vitals reviewed: Minimally bradycardic otherwise stable vitals without fever Diesel Mechanic, my review: Exam: alert oriented skin warm dry color ok Extensive crepitus around the neck the upper right arm and right shoulder, and the right thoracic area No visible bleeding or bruising resps not labored lungs diminished BSs with a few rales at bases which sound dry heart regular abd soft nondistended nontender, bowel sounds present limbs warm, no edema iv site ok I reviewed his chest x-ray images from this morning, the pneumothorax appears unchanged from yesterday on my exam and there is still notable mediastinal air and extensive subcutaneous and soft tissue air around the neck and chest and right arm. I do not see any increasing effusion Objective: Vital Signs Temp Pulse Resp BP Pulse Ox 36.9 C 53 L 16 119/65 94 11/20/17 11:26 11/20/17 11:26 11/20/17 11:26 11/20/17 11:26 11/20/17 11:11/19/17 11/20/17 11/21/17 06:59 06:59 06:59 Intake Total 300 Output Total 0 Balance 300 - Time Spent With Patient Time Spent with Patient: greater than 35 minutes Time Spent with Patient: Greater than 35 minutes spent on this patients care, greater than 50% of time spent counseling, educating, and coordinating care regarding the above mentioned plan. ICD10 Worksheet Patient Problems: Problems Problem Status Onset Acute blood loss anemia Acute Chronic Disease Mgmt/Transitional Care Acute Postoperative atrial fibrillation Acute Postoperative ileus Acute S/P CABG x 5 Acute ~12/20/16 CAD in [place] artery Chronic Diabetes mellitus Chronic Primary osteoarthritis of left knee Chronic
[2017-11-20] MEDS: ATORVASTATIN CALCIUM 20 MG TAB PO SCH (20:45)
[2017-11-20] MEDS: MONTELUKAST SODIUM 10 MG TAB PO SCH (20:46)
[2017-11-20] MEDS: PATCH REMOVAL 1 EA PATCH TD SCH (21:36)
[2017-11-21] MEDS ORDERED: LIDOCAINE 5% 1 EA PATCH TD SCH (00:45)
[2017-11-21] MEDS: LIDOCAINE 5% 1 EA PATCH TD SCH ×2 (00:46→21:35)
[2017-11-21] MEDS: ACETAMINOPHEN 500 MG TAB PO SCH ×3 (04:05→21:32)
[2017-11-21] MEDS: oxyCODONE IR 5 MG TAB PO PRN ×2 (05:50→21:31)
[2017-11-21] MEDS: INSULIN LISPRO 100 UNIT/ML SC SCH ×3 (07:44→17:39)
[2017-11-21] MEDS: amLODIPine BESYLATE 5 MG TAB PO SCH ×2 (08:30→21:32)
[2017-11-21] MEDS: CHOLECALCIFEROL VIT D3 1,000 UNITS TAB PO SCH (08:30)
[2017-11-21] MEDS: OMEGA-3 FATTY ACIDS 1,000 MG CAP PO SCH (08:31)
[2017-11-21] MEDS: ASCORBIC ACID 500 MG TAB PO SCH (08:31)
[2017-11-21] MEDS: LOSARTAN POTASSIUM 25 MG TAB PO SCH ×2 (08:31→21:32)
[2017-11-21] MEDS: ASPIRIN EC 81 MG TAB PO SCH ×2 (08:31→21:31)
[2017-11-21] MEDS: FAMOTIDINE 20 MG TAB PO SCH ×2 (08:31→21:32)
[2017-11-21] MEDS: METOPROLOL TARTRATE 25 MG TAB PO SCH ×2 (08:32→21:33)
[2017-11-21] MEDS: PSYLLIUM METAMUCIL 1 PKT PO SCH (08:32)
[2017-11-21] MEDS: FLUTICASONE/SALMETER 100/50MCG DISKUS IH SCH ×2 (08:35→21:21)
[2017-11-21] MEDS: PATCH REMOVAL 1 EA PATCH TD SCH (08:38)
[2017-11-21] MEDS: Vitamin E 400 UNIT PO SCH (08:39)
--- NOTE | 2017-11-21 09:01 | TRAUMAPN ---
Assessment/Plan: C/O increase subcutaneous emphysema with CPAP last pm - no change on interval CXR CXR pending this am OOB Artemio diet Pain controlled A&O subcutaneous emphysema right neck and chest RRR CTA well healed median sternotomy Abd soft NT Ext full ROM/MS equal bilat Doing well CXR today- d/c on home oxygen if necessary for 1 month (likely short term) No CPAP fo 2 weeks F/U cxr next week with office visit prior to flight to [place] Objective: Vital Signs Temp Pulse Resp BP Pulse Ox 36.8 C 62 16 141/78 H 91 L 11/21/17 07:33 11/21/17 08:32 11/21/17 07:33 11/21/17 08:31 11/21/17 07:33 11/20/17 11/21/17 11/22/17 05:59 05:59 05:59 Intake Total 300 Output Total 0 Balance 300
--- NOTE | 2017-11-21 09:07 | HOSPPROG ---
Hospitalist Progress Note Assessment/Plan: Pneumothorax in setting of fall with rib fracture - stable for 72 hrs post- injury, no hypoxia during the day. Has not required chest tube. -discussed with Dr. Bell -repeat CXR today and again in AM -if stable, likely dc tomorrow ELIUD - he had increased SC air with use of CPAP -defer CPAP for now until ptx resolved -nocturnal O2 instead, will need home O2 Rx for this purpose CAD s/p CABG - stable, cont outpt meds DM - bg's 100's H/O Etoh - no e/o w/d DVT PPLX - SCD's, ambulation Full code Dispo - cont inpt, likely dc in am if remains stable Subjective: Pt feels ok. Denies CP or SOB. Had some rib pain last night, better this am. No fevers/chills/cough. Ambulating. Objective: Vital Signs Temp Pulse Resp BP Pulse Ox 36.8 C 62 16 141/78 H 91 L 11/21/17 07:33 11/21/17 08:32 11/21/17 07:33 11/21/17 08:31 11/21/17 07:33 11/20/17 11/21/17 11/22/17 05:59 05:59 05:59 Intake Total 300 Output Total 0 Balance 300 - Physical Exam Constitutional: no apparent distress Eyes: PERRL Ears, Nose, Mouth, Throat: moist mucous membranes Cardiovascular: regular rate and rhythym Respiratory: no respiratory distress, clear to auscultation Gastrointestinal: normoactive bowel sounds, soft, non-tender abdomen Skin: warm, other (+crepitation left anterior chest wall and left neck) Musculoskeletal: full muscle strength Neurologic: AAOx3 Psychiatric: interacting appropriately ICD10 Worksheet Patient Problems: Problems Problem Status Onset Acute blood loss anemia Acute Chronic Disease Mgmt/Transitional Care Acute Postoperative atrial fibrillation Acute Postoperative ileus Acute S/P CABG x 5 Acute ~12/20/16 CAD in [place] artery Chronic Diabetes mellitus Chronic Primary osteoarthritis of left knee Chronic
[2017-11-21] MEDS: ATORVASTATIN CALCIUM 20 MG TAB PO SCH (21:32)
[2017-11-21] MEDS: MONTELUKAST SODIUM 10 MG TAB PO SCH (21:32)
[2017-11-22] MEDS: ACETAMINOPHEN 500 MG TAB PO SCH ×2 (03:58→11:34)
[2017-11-22] MEDS: oxyCODONE IR 5 MG TAB PO PRN ×2 (05:32→09:21)
[2017-11-22 07:30] VITALS: BP 110/69; TEMP 97.7
[2017-11-22] MEDS: INSULIN LISPRO 100 UNIT/ML SC SCH ×2 (07:52→11:38)
--- NOTE | 2017-11-22 08:25 | PDMN ---
Medical Necessity Medical necessity: C/M review: est. > 2 MN LOS for eval and TX of acute right 9th rib fracture, right pneumothorax, small hemothorax, pneumo mediastinum, extensive subcutaneous and deep soft tissue air in the neck and thoracic areas, mild mild hypophonia and hoarseness of voice at presentation, patient at risk of worsening pneumothorax, worsening hemothorax, airway occlusion, due air dissection into soft tissue planes, infection in soft tissue, requiring planned 11/21/2017 CXR, pngoing monitoring for complications, pulse oximetry, careful monitoring for any respiratory difficulties, or signs of infection, comorbid type 2 diabetes, CAD S/P CABG x 5, hyperlipidemia, hypertension, history of TKR , alcohol use, S/P fall with injury occurred 11/17/2017 per 11/20/2017 Hospitalist progress note.
[2017-11-22] MEDS: FLUTICASONE/SALMETER 100/50MCG DISKUS IH SCH (08:58)
[2017-11-22 09:02] VITALS: PULSE 68; RESP 15
[2017-11-22] MEDS: amLODIPine BESYLATE 5 MG TAB PO SCH (09:16)
[2017-11-22] MEDS: ASPIRIN EC 81 MG TAB PO SCH (09:16)
[2017-11-22] MEDS: ASCORBIC ACID 500 MG TAB PO SCH (09:16)
[2017-11-22] MEDS: FAMOTIDINE 20 MG TAB PO SCH (09:16)
[2017-11-22] MEDS: CHOLECALCIFEROL VIT D3 1,000 UNITS TAB PO SCH (09:16)
[2017-11-22] MEDS: LOSARTAN POTASSIUM 25 MG TAB PO SCH (09:21)
[2017-11-22] MEDS: PSYLLIUM METAMUCIL 1 PKT PO SCH (09:22)
[2017-11-22] MEDS: METOPROLOL TARTRATE 25 MG TAB PO SCH (09:22)
[2017-11-22] MEDS: Vitamin E 400 UNIT PO SCH (09:22)
[2017-11-22] MEDS: PATCH REMOVAL 1 EA PATCH TD SCH (09:27)
[2017-11-22] MEDS: OMEGA-3 FATTY ACIDS 1,000 MG CAP PO SCH (09:27)
--- NOTE | 2017-11-22 11:49 | TRAUMAPN ---
Assessment/Plan: 11/20/17 11:53 Assessment: PTX stable, Pain controlled. voice improved Plan: F/u CXR tomorrow. If stable then can follow resolution as an outpatient PAD#2 Assessment: Pain well controlled, PTX continues to resolve, Mild hypoxia noted Plan: Discharge on supplemental oxygen, F/u with Dr. Bell in 1 week Subjective: Pain controlled unless I cough Objective: Vital Signs Temp Pulse Resp BP Pulse Ox 36.5 C 68 15 110/69 96 11/22/17 07:30 11/22/17 09:22 11/22/17 08:59 11/22/17 09:22 11/22/17 08:59 Physical Exam - Physical Exam General Appearance: WD/WN, alert, no apparent distress Respiratory: lungs clear, normal breath sounds, other (crepitus resolving) Cardiac/Chest: regular rate, rhythm Time Spent w/Patient (minutes): 15
--- NOTE | 2017-11-22 12:01 | PDHOMEO2F ---
Home Oxygen Face to Face Home Orders: I certify that a physician or a nurse practitioner or physician's hr administrative assistant has had a fjxx-rl-ride encounter with this patient on the date of this order due to the diagnosis listed, which relates to the primary reason the patient requires home oxygen. Alternative treatments have been tried, or considered, and deemed ineffective. It is anticipated that supplemental oxygen will result in improvement with treatment. Home oxygen qualifying diagnosis: pneumothorax SpO2 on room air (%): 84 Frequency of home oxygen needed: during sleep Home oxygen liters per minute: 2 Home oxygen delivery device: nasal cannula Concentrator: Yes E-tanks for mobility and back up: Yes If ordering portable O2, is the patient mobile in the home?: Yes I certify that, based on these findings, the home oxygen is medically necessary for this patient for the following length of time. Length of time home oxygen needed: 1 month
[2017-11-22 12:25] VITALS: O2SAT 84
--- NOTE | 2017-11-22 14:44 | PDHOMEO2F ---
Home Oxygen Face to Face Home Orders: I certify that a physician or a nurse practitioner or physician's shop assistant has had a cyej-kn-owko encounter with this patient on the date of this order due to the diagnosis listed, which relates to the primary reason the patient requires home oxygen. Alternative treatments have been tried, or considered, and deemed ineffective. It is anticipated that supplemental oxygen will result in improvement with treatment. Home oxygen qualifying diagnosis: pneumothorax SpO2 on room air (%): 84 Frequency of home oxygen needed: with activity, during sleep Home oxygen liters per minute: 2 LPM Home oxygen delivery device: nasal cannula Concentrator: Yes E-tanks for mobility and back up: Yes If ordering portable O2, is the patient mobile in the home?: Yes I certify that, based on these findings, the home oxygen is medically necessary for this patient for the following length of time. Length of time home oxygen needed: 1 month
--- NOTE | 2017-11-22 17:00 | ASDISCHSUM ---
Discharge Information Plan Status:Home with No Needs Medically Cleared to Leave:11/21/2017 Discharge Date:11/22/2017 03:53 PM CM D/C Disposition:Home, Routine, Self-Care ADT D/C Disposition:Home, Routine, Self-Care Projected Discharge Date:11/22/2017 03:53 PM Transportation at D/C:Friend Discharge Delay Reason: Follow-Up Date:11/22/2017 03:53 PM Discharge Slot: Final Diagnosis: Placement Information Patient Contact Information Contact Name:HENRY Relationship:Friend Address: Work Phone: City: [facility] Phone: State/Zip Code: Email: Financial Information Financial Class: Primary Plan Desc:MEDICARE OUTPATIENT Primary Plan Number:[id number] Secondary Plan Desc:[employer] PPO Secondary Plan Number:[id number] Assessment Information [facility] CM Progress Note CM Note CM Note Notes: Spoke w/RN, pt cleared by PT. Anticipate will dc home w/support of when medically stable. CM available when medically stable. DC Plan: Independent Date Signed: 11/20/2017 12:25 PM Electronically Signed By:Melanie Mccall RN Case Management Discharge Plan Note Case Management Discharge Discharge Order Complete? Answers: Yes Transportation Arranged Answers: Family/Friends Discharge Comments Notes: Pt discharged home with no CM needs. Date Signed: 11/22/2017 04:59 PM Electronically Signed By:EMILY Swift Intervention Information
--- NOTE | 2017-11-22 17:03 | ASMTLACE ---
LACE Length of stay for Answers: 2 days current admission Acuity / Level of Answers: Yes Care: Did the patient have an inpatient admission? Comorbidities - select Answers: Diabetes (uncontrolled or all that apply controlled) Other # of Emergency department Answers: 1-2 visits in the last 6 months Social determinants Answers: History of substance abuse (ETHO, street drugs, prescription drugs, etc.) Score: 11 Date Signed: 11/22/2017 05:03 PM Electronically Signed By:EMILY Swift
--- NOTE | 2017-11-22 17:41 | GDS ---
[f rep st] DISCHARGE SUMMARY DISCHARGE DIAGNOSES: 1. Pneumothorax secondary to rib fracture in the setting of fall on ice. 2. Acute hypoxemic respiratory failure secondary to above. 3. Obstructive sleep apnea. CPAP is held due to worsening subcutaneous air. 4. Coronary artery disease status post CABG, stable. 5. Diabetes mellitus. CONSULTANTS: Dr. Calvin Perera, Trauma Surgery. HISTORY: For details, please see History and Physical dated November 16, 2017. In brief, the patient is a 72-year-old male with a history of diabetes, coronary artery disease, and history of alcohol us e, who presented to the emergency department after falling on icy stairs. It sounds as though the fa ll occurred approximately 36 hours prior to arrival and, due to persistent back pain, he presented to the urgent care, where imaging revealed a displaced 9th rib fracture and kuoeu-tj-veklmedb anterior right pneumothorax, as well as extensive subcutaneous emphysema of the chest wall. He was admitted t o the [facility] for further management. HOSPITAL COURSE: Patient was admitted to med/surg unit. Trauma surgery evaluation was requested. Chase simpson did not require chest tube. He had serial chest x-rays which, over several days, showed improvemen t in his pneumothorax. He was initially continued on his CPAP for his sleep apnea, though this clini salvador resulted in worsening subcutaneous air with associated crepitation. Thus, his CPAP is temporar evangelina held, and he is using nocturnal oxygen. In addition, he did desaturate with ambulation so will b e discharged with home oxygen during activity, as well as with sleep. Chest x-ray on the day of disc harge shows decreasing small right apical pneumothorax, at which time he was saturating 96% on room a ir. However, he did drop to 84% on room air with ambulation. His pain has been controlled with Tyle nol and p.r.n. oxycodone. He has requested a prescription for oxycodone at discharge. I counseled h im to not combine this with alcohol and favor non-opiate medications, such as scheduled Tylenol first , to which he agrees. DISPOSITION: Patient is discharged home in stable condition. FOLLOWUP: 1. Dr. Demetrio Bell in 1 week for repeat chest x-ray. He has an appointment scheduled for November 28 at 11:[address] Bridget Harris, primary care provider. DISCHARGE MEDICATIONS: Please see [employer] for completed outpatient medication list. New medication s on discharge include oxycodone 5-10 mg p.o. q.6 hours p.r.n., #20, no refills. /[id number]/MODL
== END 2017-11-22 15:53 | disposition home or self-care (01) | DRG 199 ==
LOC: F3E 16:43 → OBSVTOIN 11-20 19:33
PROVIDERS: ADMIT Family Medicine; ATTEND Family Medicine
DX: S27.0XXA Traumatic pneumothorax, initial encounter (principal); T79.7XXA Traumatic subcutaneous emphysema, initial encounter; S22.31XA Fracture of one rib, right side, initial encounter for closed fracture; W00.1XXA Fall from stairs and steps due to ice and snow, initial encounter; Y92.018 Other place in single-family (private) house as the place of occurrence of the external cause; Y99.8 Other external cause status; J96.01 Acute respiratory failure with hypoxia; G47.33 Obstructive sleep apnea (adult) (pediatric); E11.9 Type 2 diabetes mellitus without complications; I25.10 Atherosclerotic heart disease of native coronary artery without angina pectoris; Z95.1 Presence of aortocoronary bypass graft; Z79.82 Long term (current) use of aspirin; E78.5 Hyperlipidemia, unspecified; I10 Essential (primary) hypertension; M17.12 Unilateral primary osteoarthritis, left knee; Z96.651 Presence of right artificial knee joint
CPT/HCPCS: 97161-GP; G0378; G8978-GP-CI; G8979-GP-CI; G8980-GP-CI

== ENCOUNTER → 2017-11-19 | Outpatient (CLI) | payer OTHER | LOC: BMCIMAGING 11:29 → EDSTATUS 11:31 | PROVIDERS: ATTEND Family Medicine | DX: M54.5 Low back pain (principal) ==

== ENCOUNTER → 2017-11-19 | Outpatient (CLI) | payer OTHER ==
[~2017-11-19] MED LIST: IOPAMIDOL (ISOVUE 370) 100 ML BTL IV ONE; IOPAMIDOL (ISOVUE-300) 100 ML BTL ONE
== END ==
LOC: FIMAGING 14:07
PROVIDERS: ATTEND Family Medicine
DX: R91.8 Other nonspecific abnormal finding of lung field (principal); R07.89 Other chest pain
CPT/HCPCS: 71275; 74160; Q9967

== ENCOUNTER → 2017-11-28 | Outpatient (CLI) | payer OTHER | LOC: FIMAGING 09:11 | PROVIDERS: ATTEND Surgery | DX: J98.4 Other disorders of lung (principal); J44.9 Chronic obstructive pulmonary disease, unspecified; Z98.890 Other specified postprocedural states ==

== ENCOUNTER → 2018-02-06 | Outpatient (CLI) | payer OTHER | LOC: FIMAGING 09:33 | PROVIDERS: ATTEND Urology | DX: N28.1 Cyst of kidney, acquired (principal) ==

== ENCOUNTER → 2018-12-08 | Outpatient (CLI) | payer OTHER | LOC: FIMAGING 09:34 | PROVIDERS: ATTEND Internal Medicine | DX: I65.23 Occlusion and stenosis of bilateral carotid arteries (principal) ==